=== PATIENT | male | born 1960 | race Caucasian/White ===

== ENCOUNTER → 2018-11-02 | Outpatient (CLI) | payer OTHER ==
[2016-04-13 11:44] VITALS: BP 119/82
[~2018-11-02] MED LIST: ALPR0.5T PO; ASPI325T8 PO; ATOR40TA PO; CARV3.12 PO; CLOP75TA57 PO; LEXAPRO10 MG PO; LISI2.5T PO; PANT20TA2 PO
--- NOTE | 2018-11-02 09:41 | CARD ---
MR#: [id number] Date of Study: 11/02/2018 Ordering Physician: ABRAHAM MASTERS, Referring Physician: ABRAHAM MASTERS, Tech: Brandie Zhang GAGAN APPROVED REPORT EXAM: Two-dimensional and M-mode echocardiogram with Doppler and color Doppler. Other Information Quality : GoodHR: 55bpm Rhythm : Bradycardia INDICATION CAD 2D DIMENSIONS RVDd3.1 (2.9-3.5cm)Left Atrium(2D)4.6 (1.6-4.0cm) IVSd0.9 (0.7-1.1cm)Aortic Root(2D)3.5 (2.0-3.7cm) LVDd7.0 (3.9-5.9cm)LVOT Diameter2.4 (1.8-2.4cm) PWd0.8 (0.7-1.1cm)LVDs6.3 (2.5-4.0cm) FS (%) 10.5 %SV56.3 ml LVEF(%)20.0 (>50%) M-Mode DIMENSIONS Left Atrium(MM)4.58 (2.5-4.0cm)Aortic Root3.75 (2.2-3.7cm) Aortic Valve AoV Peak Zan.119.7cm/sAoV VTI26.6cm AO Peak GR.5.7mmHgLVOT Peak Zan.88.0cm/s AO Mean GR.3mmHgAVA (VMAX)3.45cm2 Mitral Valve MV E Daxkueby02.6cm/sMV E Peak Gr.2mmHg MV DECEL [id number] A Sefsgtfv80.0cm/s MV E Mean Gr.1mmHgE/A Ratio1.0 Pulmonary Valve PV Peak Hfjejbdf201.4cm/s Tricuspid Valve TR P. Zifsghqe014on/sRAP NSERUIMI9zzTw TR Peak Gr.49exZzPTHL81xnDo Pulmonary Vein S1 Mdqbxwsp99.2cm/sD2 Tuoegrbb82.1cm/s PVa [id number] LEFT VENTRICLE The Left Ventricle is moderately dilated. There is normal left ventricular wall thickness. The ejecti on fraction is severely impaired. The Ejection Fraction is 15%. There is global hypokinesis of the le ft ventricle. Transmitral Doppler flow pattern is Grade II-pseudonormal filling dynamics. RIGHT VENTRICLE The right ventricle is normal size. There is normal right ventricular wall thickness. The right ventr icular systolic function is normal. ATRIA The left atrium is moderately dilated. The right atrium is mildly dilated. The interatrial septum is intact with no evidence for an atrial septal defect or patent foramen ovale as noted on 2-D or Dopple r imaging. AORTIC VALVE The aortic valve is mildly calcified. The aortic valve is trileaflet. Doppler and Color Flow revealed trace aortic regurgitation. There is no significant aortic valvular stenosis. There is no aortic corey vular vegetation. MITRAL VALVE The mitral valve is normal in structure and function. There is no evidence of mitral valve prolapse. There is no mitral valve stenosis. Doppler and Color-flow revealed moderate mitral regurgitation. TRICUSPID VALVE The tricuspid valve is normal in structure and function. Doppler and Color Flow revealed trace tricus pid regurgitation. The PA pressure was estimated at 23 mmHg. There is no tricuspid valve prolapse or vegetation. There is no tricuspid valve stenosis. PULMONIC VALVE Doppler and Color Flow revealed no pulmonic valvular regurgitation. There is no pulmonic valvular neo nosis. GREAT VESSELS The aortic root is normal in size. The ascending aorta is Mildly dilated at 3.8cm. The IVC is normal in size and collapses >50% with inspiration. PERICARDIAL EFFUSION There is no evidence of significant pericardial effusion. Critical Notification Critical Value: No <Conclusion> The ejection fraction is severely impaired. The Ejection Fraction is 15%. The Left Ventricle is moderately dilated. There is global hypokinesis of the left ventricle. Doppler and Color-flow revealed moderate mitral regurgitation. The ascending aorta is Mildly dilated at 3.8cm. Signed by : Abraham Masters, Electronically Approved : 11/02/2018 09:41:03
== END | disposition home or self-care (01) ==
LOC: ECHO 08:08
PROVIDERS: ATTEND Internal Medicine Cardiovascular Disease
DX: I08.0 Rheumatic disorders of both mitral and aortic valves (principal); I25.10 Atherosclerotic heart disease of native coronary artery without angina pectoris
CPT/HCPCS: 93306

== ENCOUNTER 2019-02-15 10:53 | Inpatient (IN) | payer OTHER ==
[~2019-02-15] VITALS: Ht 177.8 cm; Wt 103.6 kg
[2019-02-15] MEDS ORDERED: FAMOTIDINE 20 MG/2 ML VIAL IVP ONE (11:45)
[2019-02-15] MEDS ORDERED: ONDANSETRON PF 4 MG/2 ML VIAL. IV ONE (11:45)
[2019-02-15] MEDS ORDERED: DICYCLOMINE HCL 10 MG CAPSULE PO ONE (11:45)
[2019-02-15] MEDS ORDERED: MORPHINE SULFATE 4 MG/ML VIAL. IV/SQ PRN (11:45)
[2019-02-15 11:54] LABS: BASO # 0.1 x10^3/uL (0.0-0.2); BASO % 1 % (0-3); EOS # 0.1 x10^3/uL (0.0-0.7); EOS % 1 % (0-3); HEMATOCRIT 61.1 % (39.0-53.0); HEMOGLOBIN 20.9 g/dL (13.0-17.5); LYMPH # 3.1 x10^3/uL (1.0-4.8); LYMPH % 19 % (24-48); MEAN CORPUSCULAR HEMOGLOBIN 31 pg (25-35); MEAN CORPUSCULAR HGB CONC 34 g/dL (31-37); MEAN CORPUSCULAR VOLUME 92 fL (79-100); MONO # 1.1 x10^3/uL (0.0-1.1); MONO % 7 % (0-9); NEUT % 73 % (31-73); PLATELET COUNT 261 x10^3/uL (140-400); RED BLOOD COUNT 6.67 x10^6/uL (4.30-5.70); RED CELL DISTRIBUTION WIDTH 13.6 % (11.5-14.5); WHITE BLOOD COUNT 16.4 x10^3/uL (4.0-11.0)
[2019-02-15 11:57] LABS: BILIRUBIN,URINE SMALL (NEG); CLARITY,URINE CLEAR; COLOR,URINE AMBER; NITRITE,URINE NEGATIVE (NEG); PROTEIN,URINE NEGATIVE (NEG-TRACE)
[2019-02-15 12:06] LABS: SQUAMOUS EPITHELIAL CELL,UR FEW /LPF
[2019-02-15 12:07] LABS: BACTERIA,URINE FEW /HPF (0-FEW)
[2019-02-15 12:16] LABS: CALCIUM 10.9 mg/dL (8.5-10.1); CREATININE 1.1 mg/dL (0.7-1.3); GFR 68.5; POTASSIUM 4.6 mmol/L (3.5-5.1)
[2019-02-15 12:21] LABS: ALBUMIN 4.4 g/dL (3.4-5.0); TOTAL PROTEIN 8.2 g/dL (6.4-8.2)
[2019-02-15 12:22] LABS: ALBUMIN/GLOBULIN RATIO 1.2 (1.0-1.7); MAGNESIUM 1.9 mg/dL (1.8-2.4); TOTAL BILIRUBIN 1.3 mg/dL (0.2-1.0)
[2019-02-15 12:31] LABS: BARBITURATES NEG (NEG); BENZODIAZEPINES POS (NEG); CANNABINOIDS POS (NEG); COCAINE NEG (NEG); METHADONE NEG (NEG); OPIATES NEG (NEG); PHENCYCLIDINE NEG (NEG)
[2019-02-15 12:33] LABS: AMPHETAMINE/METHAMPHETAMINE NEG (NEG)
[2019-02-15] MEDS ORDERED: IOHEXOL 300 MG/ML 100ML VIAL. IV ONE (13:00)
--- NOTE | 2019-02-15 13:02 | EKG ---
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
[2019-02-15] MEDS ORDERED: CONTRAST GIVEN. MC PRN (13:15)
--- NOTE | 2019-02-15 14:11 | RAD ---
Examination: CT ABD PELV W/ IV CONTRST ONLY History: Abdomen pain Comparison/Correlation: None Findings: Axial images of the abdomen and pelvis were obtained following IV contrast. Sagittal and coronal reformatted images were provided. Sternal wires are present. Visualized lung bases are clear. Liver, spleen, and pancreas are unremarkable. Gallbladder fossa is unremarkable. Adrenal glands are unremarkable. Right kidney is normal. Left renal superior pole medially, there is a heterogeneously enhancing mass measuring 6.1 cm anteroposterior by 5.4 cm transverse by 7.3 cm longitudinal. Very small to characterize lesion lateral to this structure on axial image 24 probably represents a cyst. Renal veins are patent. Small umbilical hernia contains omental fat. No enlarged abdominal or pelvic lymph nodes. No ascites or pelvic free fluid. Fusiform infrarenal abdominal aortic aneurysm with thrombus is present measuring up to 4.3 cm transverse by 4.2 cm anteroposterior by 7.3 cm longitudinal. Atherosclerotic calcific involvement of the right common iliac artery noted. There is no bowel obstruction. No extraluminal gas. Appendix is normal. Urinary bladder is unremarkable. Bilateral L5 pars interarticularis fractures are present. Alignment is unremarkable. Impression: Left renal superior pole heterogeneous mass which is of significant concern for renal cell carcinoma or other renal malignancy. Infrarenal fusiform abdominal aortic aneurysm. Bilateral L5 pars interarticularis fractures are chronic in appearance without malalignment. PQRS Compliance Statement: One or more of the following individualized dose reduction techniques were utilized for this examination: 1. Automated exposure control 2. Adjustment of the mA and/or kV according to patient size 3. Use of iterative reconstruction technique Electronically signed by: Milton Andrade MD (02/15/2019 2:08 PM) [facility]
[2019-02-15] MEDS ORDERED: ALPRAZolam 0.5 MG TABLET PO ONE (17:45)
[2019-02-15] MEDS ORDERED: cloNIDine HCL 0.1 MG TABLET PO ONE (17:45)
--- NOTE | 2019-02-15 18:08 | PHYS DOC ---
Past Medical History Past Medical History: Anxiety, CAD, High Cholesterol, Heart Disease, Hypertension Past Surgical History: Other Alcohol Use: None Drug Use: Benzodiazepine Adult General Chief Complaint Chief Complaint: ABDOMINAL PAIN HPI HPI Patient is a 58 year old male with history of CAD, hypertension, anxiety, who presents to the ED today complaining of 10 out of 10 generalized abdominal pain with nausea vomiting and diarrhea intermittently for 2 weeks. Patient denies any exacerbating or relieving factors. He states he is supposed to be off his benzodiazepines because his doctor is weaning him but he states he has had episodes of anxiety and took the medication today with no relief to his symptoms. Denies any suicidal or homicidal ideations. Review of Systems Review of Systems Constitutional: Denies fever or chills [] Eyes: Denies change in visual acuity, redness, or eye pain [] HENT: Denies nasal congestion or sore throat [] Respiratory: Denies cough or shortness of breath [] Cardiovascular: No additional information not addressed in HPI [] GI: Reports abdominal pain, nausea vomiting and diarrhea : Denies dysuria or hematuria [] Musculoskeletal: Denies back pain or joint pain [] Integument: Denies rash or skin lesions [] Neurologic: Denies headache, focal weakness or sensory changes [] Endocrine: Denies polyuria or polydipsia [] All other systems were reviewed and found to be within normal limits, except as documented in this note. Current Medications Current Medications Current Medications Medications (Trade) Dose Ordered Sig/Demian Start Time Stop Time Status Last Admin Dose Admin Dicyclomine HCl (Bentyl) 20 mg 1X ONCE 02/15/19 11:45 02/15/19 11:46 DC Famotidine (Pepcid Vial) 20 mg 1X ONCE 02/15/19 11:45 02/15/19 11:46 DC 02/15/19 12:05 20 MG Info (CONTRAST GIVEN -- Rx MONITORING) 1 each PRN DAILY PRN 02/15/19 13:15 02/17/19 13:14 Iohexol (Omnipaque 300 Mg/ml) 75 ml 1X ONCE 02/15/19 13:00 02/15/19 13:06 DC 02/15/19 13:11 75 ML Morphine Sulfate (Morphine Sulfate) 4 mg PRN Q15MIN PRN 02/15/19 11:45 02/16/19 11:44 02/15/19 12:04 4 MG Ondansetron HCl (Zofran) 4 mg 1X ONCE 02/15/19 11:45 02/15/19 11:46 DC 02/15/19 12:05 4 MG Allergies Allergies Allergies Coded Allergies Type Severity Reaction Last Updated Verified Penicillins Allergy Intermediate Rash 02/18/15 Yes Physical Exam Physical Exam Constitutional: Well developed, well nourished, no acute distress, non-toxic appearance. [] HENT: Normocephalic, atraumatic, bilateral external ears normal, oropharynx moist, no oral exudates, nose normal. [] Eyes: PERRLA, EOMI, conjunctiva normal, no discharge. [] Neck: Normal range of motion, no tenderness, supple, no stridor. [] Cardiovascular: Old healed surgical incision on the chest. Heart rate regular rhythm, no murmur [] Lungs & Thorax: Bilateral breath sounds clear to auscultation [] Abdomen: Bowel sounds normal, soft, no tenderness, no masses, no pulsatile masses. [] Skin: Warm, dry, no erythema, no rash. [] Back: No tenderness, no CVA tenderness. [] Extremities: No tenderness, no cyanosis, no clubbing, ROM intact, no edema. [] Neurologic: Alert and oriented X 3, normal motor function, normal sensory function, no focal deficits noted. [] Psychologic: Flat affect, depressed mood, tearful at times Current Patient Data Vital Signs Vital Signs Date Time Temp Pulse Resp B/P (MAP) Pulse Ox O2 Delivery O2 Flow Rate FiO2 02/15/19 12:53 52 196/124 (148) 99 02/15/19 12:04 16 02/15/19 11:35 Room Air 02/15/19 10:53 98.6 98.6 Lab Values Laboratory Tests Test 02/15/19 11:35 02/15/19 11:40 White Blood Count 16.4 x10^3/uL (4.0-11.0) H Red Blood Count 6.67 x10^6/uL (4.30-5.70) H Hemoglobin 20.9 g/dL (13.0-17.5) H Hematocrit 61.1 % (39.0-53.0) H Mean Corpuscular Volume 92 fL (79-100) Mean Corpuscular Hemoglobin 31 pg (25-35) Mean Corpuscular Hemoglobin Concent 34 g/dL (31-37) Red Cell Distribution Width 13.6 % (11.5-14.5) Platelet Count 261 x10^3/uL (140-400) Neutrophils (%) (Auto) 73 % (31-73) Lymphocytes (%) (Auto) 19 % (24-48) L Monocytes (%) (Auto) 7 % (0-9) Eosinophils (%) (Auto) 1 % (0-3) Basophils (%) (Auto) 1 % (0-3) Neutrophils # (Auto) 12.0 x10^3/uL (1.8-7.7) H Lymphocytes # (Auto) 3.1 x10^3/uL (1.0-4.8) Monocytes # (Auto) 1.1 x10^3/uL (0.0-1.1) Eosinophils # (Auto) 0.1 x10^3/uL (0.0-0.7) Basophils # (Auto) 0.1 x10^3/uL (0.0-0.2) Sodium Level 140 mmol/L (136-145) Potassium Level 4.6 mmol/L (3.5-5.1) Chloride Level 102 mmol/L (98-107) Carbon Dioxide Level 26 mmol/L (21-32) Anion Gap 12 (6-14) Blood Urea Nitrogen 16 mg/dL (8-26) Creatinine 1.1 mg/dL (0.7-1.3) Estimated GFR (Cockcroft-Gault) 68.5 BUN/Creatinine Ratio 15 (6-20) Glucose Level 130 mg/dL (70-99) H Calcium Level 10.9 mg/dL (8.5-10.1) H Magnesium Level 1.9 mg/dL (1.8-2.4) Total Bilirubin 1.3 mg/dL (0.2-1.0) H Aspartate Amino Transferase (AST) 20 U/L (15-37) Alanine Aminotransferase (ALT) 24 U/L (16-63) Alkaline Phosphatase 76 U/L (46-116) Creatine Kinase 108 U/L (39-308) Creatine Kinase MB (Mass) 2.4 ng/mL (0.0-3.6) Creatine Kinase MB Relative Index 2.2 % (0-4) Troponin I Quantitative < 0.017 ng/mL (0.000-0.055) JR-[id number]-[id number]-Type Natriuretic Peptide 457 pg/mL (0-124) H Total Protein 8.2 g/dL (6.4-8.2) Albumin 4.4 g/dL (3.4-5.0) Albumin/Globulin Ratio 1.2 (1.0-1.7) Lipase 180 U/L (73-393) Ethyl Alcohol Level < 10 mg/dL (0-10) Urine Collection Type Unknown Urine Color [place] Urine Clarity Clear Urine pH 6.0 Urine Specific [place] 1.025 Urine Protein Negative mg/dL (NEG-TRACE) Urine Glucose (UA) Negative mg/dL (NEG) Urine Ketones (Stick) 40 mg/dL (NEG) Urine Blood Small (NEG) Urine Nitrite Negative (NEG) Urine Bilirubin Small (NEG) Urine Urobilinogen Dipstick 1.0 mg/dL (0.2 mg/dL) Urine Leukocyte Esterase Trace (NEG) Urine RBC 3-5 /HPF (0-2) Urine WBC 1-4 /HPF (0-4) Urine Squamous Epithelial Cells Few /LPF Urine Bacteria Few /HPF (0-FEW) Urine Mucus Mod /LPF Urine Opiates Screen Neg (NEG) Urine Methadone Screen Neg (NEG) Urine Barbiturates Neg (NEG) Urine Phencyclidine Screen Neg (NEG) Urine Amphetamine/Methamphetamine Neg (NEG) Urine Benzodiazepines Screen Pos (NEG) Urine Cocaine Screen Neg (NEG) Urine Cannabinoids Screen Pos (NEG) Urine Ethyl Alcohol Neg (NEG) Laboratory Tests 02/15/19 11:35 Laboratory Tests 02/15/19 11:35 EKG EKG [] Radiology/Procedures Radiology/Procedures []PROCEDURE: CT ABD PELV W/ IV CONTRST ONLY Examination: CT ABD PELV W/ IV CONTRST ONLY History: Abdomen pain Comparison/Correlation: None Findings: Axial images of the abdomen and pelvis were obtained following IV contrast. Sagittal and coronal reformatted images were provided. Sternal wires are present. Visualized lung bases are clear. Liver, spleen, and pancreas are unremarkable. Gallbladder fossa is unremarkable. Adrenal glands are unremarkable. Right kidney is normal. Left renal superior pole medially, there is a heterogeneously enhancing mass measuring 6.1 cm anteroposterior by 5.4 cm transverse by 7.3 cm longitudinal. Very small to characterize lesion lateral to this structure on axial image 24 probably represents a cyst. Renal veins are patent. Small umbilical hernia contains omental fat. No enlarged abdominal or pelvic lymph nodes. No ascites or pelvic free fluid. Fusiform infrarenal abdominal aortic aneurysm with thrombus is present measuring up to 4.3 cm transverse by 4.2 cm anteroposterior by 7.3 cm longitudinal. Atherosclerotic calcific involvement of the right common iliac artery noted. There is no bowel obstruction. No extraluminal gas. Appendix is normal. Urinary bladder is unremarkable. Bilateral L5 pars interarticularis fractures are present. Alignment is unremarkable. Impression: Left renal superior pole heterogeneous mass which is of significant concern for renal cell carcinoma or other renal malignancy. Infrarenal fusiform abdominal aortic aneurysm. Bilateral L5 pars interarticularis fractures are chronic in appearance without malalignment. PQRS Compliance Statement: One or more of the following individualized dose reduction techniques were utilized for this examination: 1. Automated exposure control 2. Adjustment of the mA and/or kV according to patient size 3. Use of iterative reconstruction technique Electronically signed by: Milton Franco MD (02/15/2019 2:08 PM) [facility] DICTATED and SIGNED BY: MILTON FRANCO MD DATE: 02/15/19 2656 Course & Med Decision Making Course & Med Decision Making Pertinent Labs and Imaging studies reviewed. (See chart for details) This is a 58-year-old male patient presenting to the ED today complaining of generalized abdominal pain with nausea vomiting and diarrhea for 2 weeks. CBC with a WBC of 16.4 and a left shift. CMP would not acute findings. Urine analysis is noted for trace amount of leukocytes. CT of the abdomen and pelvic is noted for left renal carcinoma. Information was given to patient. He requested admission. Spoke with Dr. Trimble prior to poor accepted patient for admission and requested routine consult for infectious disease as well as GI. He also requested Levaquin IV. Dragon Disclaimer Dragon Disclaimer This electronic medical record was generated, in whole or in part, using a voice recognition dictation system. Departure Departure Impression: Primary Impression: Urinary tract infection Additional Impressions: Abdominal pain Vomiting and diarrhea Disposition: ADMITTED INPATIENT Condition: STABLE Referrals: BETO TRIMBLE MD (PCP) Problem Qualifiers Primary Impression: Urinary tract infection Urinary tract infection type: site unspecified Hematuria presence: without hematuria Qualified Codes: N39.0 - Urinary tract infection, site not specified Additional Impressions: Abdominal pain Abdominal location: unspecified location Qualified Codes: R10.9 - Unspecified abdominal pain KRISSY ALCARAZ APRN Feb 15, 2019 18:08
[2019-02-15] MEDS ORDERED: IV NORMAL SALINE 1000ML BAG 1,000 ML IV ONE (18:15)
[2019-02-15] MEDS ORDERED: ACETAMINOPHEN 325 MG TABLET. PO PRN (18:15)
[2019-02-15] MEDS ORDERED: MORPHINE SULFATE 4 MG/ML VIAL. IV PRN (18:15)
[2019-02-15] MEDS ORDERED: ONDANSETRON PF 4 MG/2 ML VIAL. IV PRN (18:15)
[2019-02-15] MEDS ORDERED: ONDANSETRON ODT 4 MG TAB.RAPDIS. PO PRN (18:30)
[2019-02-15] MEDS ORDERED: cloNIDine HCL 0.1 MG TABLET PO PRN (18:30)
[2019-02-15] MEDS ORDERED: hydrALAZINE 20 MG/ML VIAL. IVP PRN (18:30)
--- NOTE | 2019-02-15 18:45 | PDOC ---
Provider Note Provider Note Patient seen. History and Physical dictated. See dictation#[id number] BETO DALEY MD Feb 15, 2019 18:45
[2019-02-15 19:00] VITALS: BP 142/90
[2019-02-15] MEDS: ENOXAPARIN 40 MG/0.4 ML SYRINGE. SQ SCH (20:00)
[2019-02-15] MEDS: IV DEXTROSE 5 %-0.45 % NACL 1,000 ML IV SCH (20:15)
--- NOTE | 2019-02-15 20:16 | HP ---
ADMIT DATE: 02/15/2019 HISTORY OF PRESENT ILLNESS: This 58-year-old male states that for the last 2 weeks he has not been feeling well. He started having back pain that has been getting worse. He has a history of chronic low back pain. Then for the last 3 days, he has had nausea and vomiting. Denies abdominal pain. He had no bowel movement. He states that he could not eat and he has not taken his medications. He also started becoming dyspneic this morning. He also has had cough, congestion, sneezing, and nasal drainage. Mucus is white. He denies any fever or chills. Because of the severe back pain, abdominal pain, nausea, vomiting, and dyspnea, he came to the Emergency Room. In the Emergency Room, he has had very high blood pressures. Initial blood pressure was 197/95 and 196/124 and now it is 176/98. He was given clonidine in the Emergency Room. Blood test showed that he is known to have polycythemia vera and has previously sometimes given blood for therapeutic phlebotomy. His WBC count is 16.4, hemoglobin is 20.9, polys 73, and platelet count is 261,000. Sodium 140, potassium 4.6, BUN 16, creatinine 1.1, glucose 130, calcium 10.9, magnesium 1.9, and total bilirubin 1.3. BNP was 457. Troponin was normal. Urine drug screen showed marijuana and benzodiazepines in his urine. The patient has a history of anxiety and has previously been on Xanax, but we had declined to give him Xanax for some time. His urinalysis showed small bilirubin, nitrite negative, 3-5 rbc's, 1-4 wbc's, and few bacteria. CT scan of abdomen and pelvis showed left renal mass which could be possible renal cell carcinoma. He also has a 4.3 cm infrarenal abdominal aortic aneurysm with thrombus. He has had bilateral L5 pars interarticularis fractures that are chronic. Because of the hypertensive crisis, abdominal pain, vomiting, worsening of the polycythemia vera, and dyspnea, the patient was admitted for further evaluation and management. REVIEW OF SYSTEMS: At present time, the patient continues to have some low back pain. He does not have any nausea or vomiting at this time. He is able to talk to me without getting short of breath, but he is very anxious. He denies any hematuria or dysuria. Other systems reviewed and are negative. He denies any chest pains, palpitations, or dizziness. PAST MEDICAL HISTORY: The patient has a history of polycythemia vera. He was supposed to have a sleep study that was ordered by Dr. Hall few weeks ago. He has a history of depression and anxiety. He had a seizure disorder in 1987. He had brain injury in 1992. He also has had low back pain from lumbar fractures, transverse process fractures. He has a history of coronary artery disease, hypertension, anxiety, and depression. He also has allergic rhinitis. PAST SURGICAL HISTORY: The patient has had CABG x 5 in 2007. I do believe he had a bone marrow biopsy. He has a history of an accident with transverse process fractures of the lumbar spine and a history of marijuana abuse and using benzodiazepines for anxiety. ALLERGIES: THE PATIENT IS ALLERGIC TO PENICILLIN. MEDICATIONS: Reviewed. The patient is supposed to be on Plavix 75 mg daily which I do not see on his list and he was on aspirin 325 mg half tablet daily. He is on Coreg 3.125 mg and lisinopril 2.5 mg for the blood pressure, Lexapro 10 mg daily, and Xanax 0.5 mg twice a day p.r.n. for anxiety. FAMILY HISTORY: Brother had myocardial infarction. Father had coronary artery disease with CABG and mother also has coronary artery disease. PHYSICAL EXAMINATION: GENERAL: The patient is a middle-aged male who is alert, oriented, very anxious, and not in any acute distress. VITAL SIGNS: Temperature 98.6, pulse 67 per minute, respirations 16 per minute, and blood pressure on admission was 205/114 mmHg. Last blood pressure is 176/98 mmHg. EYES: Pupils reacting to light. Conjunctivae pink. Sclerae white. HENT: Unremarkable except for mild congestion of throat. NECK: Supple. JVP normal. No thyromegaly. Trachea midline. SKIN: Warm and dry. Face is plethoric. There is no cyanosis. LUNGS: Decreased breath sounds at bases. No wheezing. No rales. CARDIOVASCULAR: S1, S2 regular. Bradycardia present. ABDOMEN: Soft and nontender. No guarding. No rigidity. Bowel sounds present. EXTREMITIES: No edema. No cyanosis. No calf tenderness. CENTRAL NERVOUS SYSTEM: Alert and oriented, very anxious, and moves all extremities. LABORATORY FINDINGS: As noted earlier. IMAGING: CT scan of abdomen and pelvis as noted earlier. IMPRESSION: 1. Acute hypertensive crisis. 2. Abdominal pain. 3. Vomiting. 4. Left renal mass, possibly renal cell carcinoma. 5. Polycythemia vera, much worse. 6. Dyspnea. 7. Aortic aneurysm, 4.3 cm in size with thrombus. 8. Coronary artery disease. 9. History of coronary artery bypass graft. 10. Depression. 11. Anxiety. 12. Marijuana abuse. 13. Dependence on Xanax. 14. Seizure disorder. 15. History of brain injury. PLAN: We will consult Dr. Hall for evaluation of his polycythemia. He may be also dehydrated. I will give him some IV fluids. He was supposed to get a sleep study ordered by Dr. Hall. Leukocytosis may be due to polycythemia, but because of his dyspnea, cough, and sinus congestion, I will also consult Dr. Marck Montague for Infectious Disease evaluation and management. He also has had significant nausea, vomiting, and abdominal pain. Consult Dr. Viramontes for Urology evaluation and management and Dr. Whitehead for Vascular Surgery evaluation and management because of the thrombus in the aneurysm. We will give him IV fluids. I will order x-rays of the chest and lumbar spine. I will start him on Lovenox 40 mg subcutaneous daily. Continue other medications. I will put him back on aspirin. I will hold Plavix for now in case if any procedure is planned. For details, please refer to the orders. I will also give him clonidine 0.1 mg q. 6 hours p.r.n. for systolic blood pressure more than 160. For details, please refer to the orders. BETO DALEY MD DR: CATHERINE/jarrett JOB#: [id number] / [id number]
[2019-02-15] MEDS: ATORVASTATIN CALCIUM 40 MG TABLET. PO SCH (21:01)
[2019-02-15 23:00] VITALS: BP 124/69
[2019-02-16 03:00] VITALS: BP 121/70
[2019-02-16 04:21] LABS: BASO # 0.2 x10^3/uL (0.0-0.2); BASO % 1 % (0-3); EOS # 0.2 x10^3/uL (0.0-0.7); EOS % 1 % (0-3); HEMATOCRIT 54.8 % (39.0-53.0); HEMOGLOBIN 18.8 g/dL (13.0-17.5); LYMPH # 4.7 x10^3/uL (1.0-4.8); LYMPH % 27 % (24-48); MEAN CORPUSCULAR HEMOGLOBIN 32 pg (25-35); MEAN CORPUSCULAR HGB CONC 34 g/dL (31-37); MEAN CORPUSCULAR VOLUME 92 fL (79-100); MONO # 1.5 x10^3/uL (0.0-1.1); MONO % 9 % (0-9); NEUT # 11.1 x10^3/uL (1.8-7.7); NEUT % 63 % (31-73); PLATELET COUNT 222 x10^3/uL (140-400); RED BLOOD COUNT 5.96 x10^6/uL (4.30-5.70); RED CELL DISTRIBUTION WIDTH 13.6 % (11.5-14.5); WHITE BLOOD COUNT 17.7 x10^3/uL (4.0-11.0)
[2019-02-16 04:36] LABS: ALBUMIN 3.6 g/dL (3.4-5.0); GFR 76.5; POTASSIUM 3.8 mmol/L (3.5-5.1); TOTAL BILIRUBIN 1.3 mg/dL (0.2-1.0); TOTAL PROTEIN 7.3 g/dL (6.4-8.2)
[2019-02-16 07:00] VITALS: BP 122/77
[2019-02-16] MEDS ORDERED: ASPIRIN 325 MG TABLET PO SCH (09:00)
[2019-02-16] MEDS ORDERED: CARVEDILOL 3.125 MG TABLET. PO SCH (09:00)
[2019-02-16] MEDS ORDERED: FLU VAX QS 2019-20 (36MOS+)/PF 0.5 ML SYRINGE. VAX IM ONE (09:00)
--- NOTE | 2019-02-16 09:10 | RAD ---
CHEST PA LATERAL History: Dyspnea Comparison: 08/17/2014 and 2 view chest x-ray exam. Findings: Sternal wires and mediastinal clips are present. The cardiomediastinal silhouette is normal. Pulmonary vasculature is normal. The lungs are clear. No pleural effusion or pneumothorax is seen. There is no acute bone abnormality. IMPRESSION: No acute cardiopulmonary process. Electronically signed by: Milton Andrade MD (02/16/2019 9:07 AM) [facility]
--- NOTE | 2019-02-16 09:15 | RAD ---
Examination: LUMBAR SPINE 2-3V History: Low back pain Comparison/Correlation: 02/14/2019 CT abdomen and pelvis with contrast Findings: Total 3 images of the lumbar spine were obtained including frontal view, lateral view, and cone-down lateral view at the L5-S1 level. Alignment is normal. Alignment is normal. Vertebral body heights are adequate. No new fracture or bony destruction. L5 pars and articularis fracture involvement noted. Degenerative changes involving the lower lumbar spine facet joints noted. Infrarenal abdominal aorta aneurysm is noted. Impression: Alignment is unremarkable. Infrarenal abdominal aortic aneurysm. L5 pars interarticularis fracture involvement. Electronically signed by: Milton Andrade MD (02/16/2019 9:12 AM) [facility]
--- NOTE | 2019-02-16 09:50 | PDOC ---
IM PROGRESS NOTES- Subjective Subjective Abdominal pain,nausea,dyspnea improving. Objective Vitals/I&O Vital Signs Date Time Temp Pulse Resp B/P (MAP) Pulse Ox O2 Delivery O2 Flow Rate FiO2 02/16/19 07:00 97.8 56 16 122/77 (92) 98 Room Air 97.8 I & O 02/15/19 02/15/19 02/16/19 15:00 23:00 07:00 Intake Total 400 ml 200 ml Balance 400 ml 200 ml Physical Exam Physical Exam General appearance - alert,well appearing, and in no distress and oriented to person, place, and time Mental Status - alert, oriented to person, place, and time, anxious Head - normal Chest - clear to auscultation, no wheezes, rales or rhonchi, symmetric air entry Heart - S1 and S2 normal Abdomen - soft, nontender, nondistended, no masses or organomegaly Neurological - alert and oriented,anxious Musculoskeletal - no muscular tenderness noted Extremities - no pedal edema Skin - warm and dry Labs Laboratory Tests Test 02/15/19 11:35 02/15/19 11:40 02/16/19 03:50 White Blood Count 16.4 x10^3/uL (4.0-11.0) H 17.7 x10^3/uL (4.0-11.0) H Red Blood Count 6.67 x10^6/uL (4.30-5.70) H 5.96 x10^6/uL (4.30-5.70) H Hemoglobin 20.9 g/dL (13.0-17.5) H 18.8 g/dL (13.0-17.5) H Hematocrit 61.1 % (39.0-53.0) H 54.8 % (39.0-53.0) H Mean Corpuscular Volume 92 fL (79-100) 92 fL (79-100) Mean Corpuscular Hemoglobin 31 pg (25-35) 32 pg (25-35) Mean Corpuscular Hemoglobin Concent 34 g/dL (31-37) 34 g/dL (31-37) Red Cell Distribution Width 13.6 % (11.5-14.5) 13.6 % (11.5-14.5) Platelet Count 261 x10^3/uL (140-400) 222 x10^3/uL (140-400) Neutrophils (%) (Auto) 73 % (31-73) 63 % (31-73) Lymphocytes (%) (Auto) 19 % (24-48) L 27 % (24-48) Monocytes (%) (Auto) 7 % (0-9) 9 % (0-9) Eosinophils (%) (Auto) 1 % (0-3) 1 % (0-3) Basophils (%) (Auto) 1 % (0-3) 1 % (0-3) Neutrophils # (Auto) 12.0 x10^3/uL (1.8-7.7) H 11.1 x10^3/uL (1.8-7.7) H Lymphocytes # (Auto) 3.1 x10^3/uL (1.0-4.8) 4.7 x10^3/uL (1.0-4.8) Monocytes # (Auto) 1.1 x10^3/uL (0.0-1.1) 1.5 x10^3/uL (0.0-1.1) H Eosinophils # (Auto) 0.1 x10^3/uL (0.0-0.7) 0.2 x10^3/uL (0.0-0.7) Basophils # (Auto) 0.1 x10^3/uL (0.0-0.2) 0.2 x10^3/uL (0.0-0.2) Sodium Level 140 mmol/L (136-145) 141 mmol/L (136-145) Potassium Level 4.6 mmol/L (3.5-5.1) 3.8 mmol/L (3.5-5.1) Chloride Level 102 mmol/L (98-107) 105 mmol/L (98-107) Carbon Dioxide Level 26 mmol/L (21-32) 27 mmol/L (21-32) Anion Gap 12 (6-14) 9 (6-14) Blood Urea Nitrogen 16 mg/dL (8-26) 17 mg/dL (8-26) Creatinine 1.1 mg/dL (0.7-1.3) 1.0 mg/dL (0.7-1.3) Estimated GFR (Cockcroft-Gault) 68.5 76.5 BUN/Creatinine Ratio 15 (6-20) 17 (6-20) Glucose Level 130 mg/dL (70-99) H 116 mg/dL (70-99) H Calcium Level 10.9 mg/dL (8.5-10.1) H 9.0 mg/dL (8.5-10.1) Magnesium Level 1.9 mg/dL (1.8-2.4) Total Bilirubin 1.3 mg/dL (0.2-1.0) H 1.3 mg/dL (0.2-1.0) H Aspartate Amino Transferase (AST) 20 U/L (15-37) 15 U/L (15-37) Alanine Aminotransferase (ALT) 24 U/L (16-63) 19 U/L (16-63) Alkaline Phosphatase 76 U/L (46-116) 62 U/L (46-116) Creatine Kinase 108 U/L (39-308) Creatine Kinase MB (Mass) 2.4 ng/mL (0.0-3.6) Creatine Kinase MB Relative Index 2.2 % (0-4) Troponin I Quantitative < 0.017 ng/mL (0.000-0.055) FE-Aez-X-Type Natriuretic Peptide 457 pg/mL (0-124) H Total Protein 8.2 g/dL (6.4-8.2) 7.3 g/dL (6.4-8.2) Albumin 4.4 g/dL (3.4-5.0) 3.6 g/dL (3.4-5.0) Albumin/Globulin Ratio 1.2 (1.0-1.7) 1.0 (1.0-1.7) Lipase 180 U/L (73-393) Ethyl Alcohol Level < 10 mg/dL (0-10) Urine Collection Type Unknown Urine Color [place] Urine Clarity Clear Urine pH 6.0 Urine Specific Gray 1.025 Urine Protein Negative mg/dL (NEG-TRACE) Urine Glucose (UA) Negative mg/dL (NEG) Urine Ketones (Stick) 40 mg/dL (NEG) Urine Blood Small (NEG) Urine Nitrite Negative (NEG) Urine Bilirubin Small (NEG) Urine Urobilinogen Dipstick 1.0 mg/dL (0.2 mg/dL) Urine Leukocyte Esterase Trace (NEG) Urine RBC 3-5 /HPF (0-2) Urine WBC 1-4 /HPF (0-4) Urine Squamous Epithelial Cells Few /LPF Urine Bacteria Few /HPF (0-FEW) Urine Mucus Mod /LPF Urine Opiates Screen Neg (NEG) Urine Methadone Screen Neg (NEG) Urine Barbiturates Neg (NEG) Urine Phencyclidine Screen Neg (NEG) Urine Amphetamine/Methamphetamine Neg (NEG) Urine Benzodiazepines Screen Pos (NEG) Urine Cocaine Screen Neg (NEG) Urine Cannabinoids Screen Pos (NEG) Urine Ethyl Alcohol Neg (NEG) Laboratory Tests 02/15/19 11:35 02/16/19 03:50 Laboratory Tests 02/15/19 11:35 02/16/19 03:50 Meds Current Medications Medications (Trade) Dose Ordered Sig/Demian Route PRN Reason Start Time Stop Time Status Last Admin Dose Admin Morphine Sulfate (Morphine Sulfate) 4 mg PRN Q15MIN PRN IV/SQ PAIN GREATER THAN 3/10 02/15/19 11:45 02/16/19 11:44 02/15/19 12:04 Ondansetron HCl (Zofran) 4 mg 1X ONCE IV 02/15/19 11:45 02/15/19 11:46 DC 02/15/19 12:05 Famotidine (Pepcid Vial) 20 mg 1X ONCE IVP 02/15/19 11:45 02/15/19 11:46 DC 02/15/19 12:05 Iohexol (Omnipaque 300 Mg/ml) 75 ml 1X ONCE IV 02/15/19 13:00 02/15/19 13:06 DC 02/15/19 13:11 Alprazolam (Xanax) 0.5 mg 1X ONCE PO 02/15/19 17:45 02/15/19 17:47 DC 02/15/19 17:51 Clonidine HCl (Catapres) 0.1 mg 1X ONCE PO 02/15/19 17:45 02/15/19 17:47 DC 02/15/19 17:54 Atorvastatin Calcium (Lipitor) 40 mg QHS PO 02/15/19 21:00 02/15/19 21:01 Enoxaparin Sodium (Lovenox 40mg Syringe) 40 mg Q24H SQ 02/15/19 18:00 02/15/19 20:00 Morphine Sulfate (Morphine Sulfate) 4 mg PRN Q2HR PRN IV PAIN 02/15/19 18:15 02/16/19 18:14 02/16/19 01:53 Dextrose/Sodium Chloride 1,000 ml @ 75 mls/hr [id number] IV 02/15/19 18:30 02/15/19 20:15 Assessment Assessment 1. Acute hypertensive crisis. 2. Abdominal pain. 3. Vomiting. 4. Left renal mass, possibly renal cell carcinoma. 5. Polycythemia vera, much worse. 6. Dyspnea. 7. Aortic aneurysm, 4.3 cm in size with thrombus. 8. Coronary artery disease. 9. History of coronary artery bypass graft. 10. Depression. 11. Anxiety. 12. Marijuana abuse. 13. Dependence on Xanax. 14. Seizure disorder. 15. History of brain injury. PLAN: We will consult Dr. Hall for evaluation of his polycythemia. He may be also dehydrated. I will give him some IV fluids. He was supposed to get a sleep study ordered by Dr. aHll. Leukocytosis may be due to polycythemia, but because of his dyspnea, cough, and sinus congestion, I will also consult Dr. Marck Montague for Infectious Disease evaluation and management. He also has had significant nausea, vomiting, and abdominal pain. Consult Dr. Viramontes for Urology evaluation and management and Dr. Whitehead for Vascular Surgery evaluation and management because of the thrombus in the aneurysm. We will give him IV fluids. I will order x-rays of the chest and lumbar spine. I will start him on Lovenox 40 mg subcutaneous daily. Continue other medications. I will put him back on aspirin. I will hold Plavix for now in case if any procedure is planned. For details, please refer to the orders. I will also give him clonidine 0.1 mg q. 6 hours p.r.n. for systolic blood pressure more than 160. For details, please refer to the orders. Polycythemia,Leukocytosis - improving. Hypertensive crisis improving. Chest x ray no acute changes. Anxiety/Panic attacks- continue Xanax .Not taking Lexapro.Advised to take regularly. ? Renal cell carcinoma Aortic aneurysm- 4.3 cm with clot. D/w patient and family. Plan Plan For more details regarding further plans, please refer to the orders. BETO DALEY MD Feb 16, 2019 09:50
--- NOTE | 2019-02-16 09:55 | PDOC2 ---
KING CHASE 02/16/19 0955: UROLOGY CONSULT Date of Consult Date of Consult DATE: 02/16/19 TIME: 09:42 Identification/Chief Complaint Chief Complaint left renal mass Source Source: Chart review, Patient History of Present Illness Reason for Visit: 58yo male with PMH of polycythemia vera, CAD, HTN, anxiety, depression who presented to ER for dyspnea and abdominal pain CT showed left renal mass concerning for malignancy that pt was previously unaware of Pt mother had kidney cancer that required removal of kidney Denies hematuria, unintentional weight loss, bone pain Past Medical History Cardiovascular: CAD, HTN CENTRAL NERVOUS SYSTEM: Seizure Heme/Onc: Other (Polycythemia vera) Psych: Anxiety, Depression Musculoskeletal: low back pain Renal/: Other (kidney mass) Past Surgical History Past Surgical History: CABG Family History Family History: Coronary Artery Disease, Other (Kidney cancer) Social History No ALCOHOL: none Drugs: Marijuana Current Medications Current Medications Current Medications Acetaminophen (Tylenol) 650 mg PRN Q4HRS PRN PO FEVER; Start 02/15/19 at 18:15; Stop 02/16/19 at 18:14 Acetaminophen/ Hydrocodone Bitart (Lortab 7.5/325) 1 tab PRN Q6HRS PRN PO PAIN; Start 02/15/19 at 18:30 Alprazolam (Xanax) 0.5 mg 1X ONCE PO Last administered on 02/15/19at 17:51; Start 02/15/19 at 17:45; Stop 02/15/19 at 17:47; Status DC Alprazolam (Xanax) 0.5 mg PRN Q8HRS PRN PO ANXIETY / AGITATION; Start 02/15/19 at 18:30 Aspirin (Miri Aspirin) 325 mg DAILY PO ; Start 02/16/19 at 09:00; Status Cancel Aspirin (Children'S Aspirin) 81 mg DAILYWBKFT PO ; Start 02/16/19 at 08:00 Atorvastatin Calcium (Lipitor) 40 mg QHS PO Last administered on 02/15/19at 21:01; Start 02/15/19 at 21:00 Carvedilol (Coreg) 3.125 mg DAILY PO ; Start 02/16/19 at 09:00 Citalopram Hydrobromide (CeleXA) 20 mg DAILY PO ; Start 02/16/19 at 09:00 Clonidine HCl (Catapres) 0.1 mg 1X ONCE PO Last administered on 02/15/19at 17:54; Start 02/15/19 at 17:45; Stop 02/15/19 at 17:47; Status DC Clonidine HCl (Catapres) 0.1 mg PRN Q6HRS PRN PO HYPERTENSION; Start 02/15/19 at 18:30 Dextrose/Sodium Chloride 1,000 ml @ 75 mls/hr [id number] IV Last administered on 02/15/19at 20:15; Start 02/15/19 at 18:30 Dicyclomine HCl (Bentyl) 20 mg 1X ONCE PO ; Start 02/15/19 at 11:45; Stop 02/15/19 at 11:46; Status DC Enoxaparin Sodium (Lovenox 40mg Syringe) 40 mg Q24H SQ Last administered on 02/15/19at 20:00; Start 02/15/19 at 18:00 Famotidine (Pepcid Vial) 20 mg 1X ONCE IVP Last administered on 02/15/19at 12:05; Start 02/15/19 at 11:45; Stop 02/15/19 at 11:46; Status DC Hydralazine HCl (Apresoline Inj) 10 mg PRN Q4HRS PRN IVP FOR SBP > 160; Start 02/15/19 at 18:30 Influenza Virus Vaccine Quadrival (Afluria Quad 2019-20 (3yr Up) Syringe) 0.5 ml ONCE ONCE VAX IM ; Start 02/16/19 at 09:00; Stop 02/16/19 at 09:01; Status DC Info (CONTRAST GIVEN -- Rx MONITORING) 1 each PRN DAILY PRN MC SEE COMMENTS; Start 02/15/19 at 13:15; Stop 02/17/19 at 13:14 Iohexol (Omnipaque 300 Mg/ml) 75 ml 1X ONCE IV Last administered on 02/15/19at 13:11; Start 02/15/19 at 13:00; Stop 02/15/19 at 13:06; Status DC Lisinopril (Prinivil) 2.5 mg DAILY PO ; Start 02/16/19 at 09:00 Morphine Sulfate (Morphine Sulfate) 4 mg PRN Q15MIN PRN IV/SQ PAIN GREATER THAN 3/10 Last administered on 02/15/19at 12:04; Start 02/15/19 at 11:45; Stop 02/16/19 at 11:44 Morphine Sulfate (Morphine Sulfate) 4 mg PRN Q2HR PRN IV PAIN Last administered on 02/16/19at 01:53; Start 02/15/19 at 18:15; Stop 02/16/19 at 18:14 Ondansetron HCl (Zofran Odt) 4 mg PRN Q6HRS PRN PO NAUSEA/VOMITING; Start 02/15/19 at 18:30 Ondansetron HCl (Zofran) 4 mg 1X ONCE IV Last administered on 02/15/19at 12:05; Start 02/15/19 at 11:45; Stop 02/15/19 at 11:46; Status DC Ondansetron HCl (Zofran) 4 mg PRN Q8HRS PRN IV NAUSEA/VOMITING; Start 02/15/19 at 18:15; Stop 02/16/19 at 18:14 Pantoprazole Sodium (Protonix) 40 mg DAILYAC PO ; Start 02/16/19 at 07:30 Sodium Chloride 1,000 ml @ 75 mls/hr 1X ONCE IV ; Start 02/15/19 at 18:15; Stop 02/16/19 at 07:34; Status DC Allergies Allergies: Coded Allergies: Penicillins (Verified Allergy, Intermediate, Rash, 02/18/15) ROS Review Of Systems: CONSTITUTIONAL: No fever or chills EYES: No recent changes SKIN: No rash or itching CARDIOVASCULAR: No chest pain, syncope, palpitations, or edema RESPIRATORY: + SOB or cough GASTROINTESTINAL: + nausea, vomiting or abdominal pain NEUROLOGICAL: No headaches or weakness ENDOCRINE: No cold or heat intolerance GENITOURINARY: No urgency or frequency of urination MUSCULOSKELETAL: +back pain or joint pain LYMPHATICS: No enlarged lymph nodes PSYCHIATRIC: + anxiety or depression Physical Exam Physical Exam: General: Pleasant, anxious, well groomed Eyes: conjunctiva anicteric, eyes full range of motion ENT: moist oral mucosa, normal dentition Neck: Trachea midline, no masses Respiratory: unlabored breathing, not using accessory muscles Cardiovascular: Regular rate and rhythm, no peripheral edema Abdomen: nontender, nondistended, no hepatosplenomegaly, no masses Skin: no rashes or skin lesions on visualized skin Psych: normal mood, anxious. Alert and oriented x 3. Vitals VITALS Vital Signs Date Time Temp Pulse Resp B/P (MAP) Pulse Ox O2 Delivery O2 Flow Rate FiO2 02/16/19 07:00 97.8 56 16 122/77 (92) 98 Room Air 97.8 Labs Labs Laboratory Tests Test 02/15/19 11:35 02/15/19 11:40 02/16/19 03:50 White Blood Count 16.4 x10^3/uL (4.0-11.0) 17.7 x10^3/uL (4.0-11.0) Red Blood Count 6.67 x10^6/uL (4.30-5.70) 5.96 x10^6/uL (4.30-5.70) Hemoglobin 20.9 g/dL (13.0-17.5) 18.8 g/dL (13.0-17.5) Hematocrit 61.1 % (39.0-53.0) 54.8 % (39.0-53.0) Mean Corpuscular Volume 92 fL (79-100) 92 fL (79-100) Mean Corpuscular Hemoglobin 31 pg (25-35) 32 pg (25-35) Mean Corpuscular Hemoglobin Concent 34 g/dL (31-37) 34 g/dL (31-37) Red Cell Distribution Width 13.6 % (11.5-14.5) 13.6 % (11.5-14.5) Platelet Count 261 x10^3/uL (140-400) 222 x10^3/uL (140-400) Neutrophils (%) (Auto) 73 % (31-73) 63 % (31-73) Lymphocytes (%) (Auto) 19 % (24-48) 27 % (24-48) Monocytes (%) (Auto) 7 % (0-9) 9 % (0-9) Eosinophils (%) (Auto) 1 % (0-3) 1 % (0-3) Basophils (%) (Auto) 1 % (0-3) 1 % (0-3) Neutrophils # (Auto) 12.0 x10^3/uL (1.8-7.7) 11.1 x10^3/uL (1.8-7.7) Lymphocytes # (Auto) 3.1 x10^3/uL (1.0-4.8) 4.7 x10^3/uL (1.0-4.8) Monocytes # (Auto) 1.1 x10^3/uL (0.0-1.1) 1.5 x10^3/uL (0.0-1.1) Eosinophils # (Auto) 0.1 x10^3/uL (0.0-0.7) 0.2 x10^3/uL (0.0-0.7) Basophils # (Auto) 0.1 x10^3/uL (0.0-0.2) 0.2 x10^3/uL (0.0-0.2) Sodium Level 140 mmol/L (136-145) 141 mmol/L (136-145) Potassium Level 4.6 mmol/L (3.5-5.1) 3.8 mmol/L (3.5-5.1) Chloride Level 102 mmol/L (98-107) 105 mmol/L (98-107) Carbon Dioxide Level 26 mmol/L (21-32) 27 mmol/L (21-32) Anion Gap 12 (6-14) 9 (6-14) Blood Urea Nitrogen 16 mg/dL (8-26) 17 mg/dL (8-26) Creatinine 1.1 mg/dL (0.7-1.3) 1.0 mg/dL (0.7-1.3) Estimated GFR (Cockcroft-Gault) 68.5 76.5 BUN/Creatinine Ratio 15 (6-20) 17 (6-20) Glucose Level 130 mg/dL (70-99) 116 mg/dL (70-99) Calcium Level 10.9 mg/dL (8.5-10.1) 9.0 mg/dL (8.5-10.1) Magnesium Level 1.9 mg/dL (1.8-2.4) Total Bilirubin 1.3 mg/dL (0.2-1.0) 1.3 mg/dL (0.2-1.0) Aspartate Amino Transf (AST/SGOT) 20 U/L (15-37) 15 U/L (15-37) Alanine Aminotransferase (ALT/SGPT) 24 U/L (16-63) 19 U/L (16-63) Alkaline Phosphatase 76 U/L (46-116) 62 U/L (46-116) Creatine Kinase 108 U/L (39-308) Creatine Kinase MB (Mass) 2.4 ng/mL (0.0-3.6) Creatine Kinase MB Relative Index 2.2 % (0-4) Troponin I Quantitative < 0.017 ng/mL (0.000-0.055) [id number]-Gft-[id number]-Type Natriuretic Peptide 457 pg/mL (0-124) Total Protein 8.2 g/dL (6.4-8.2) 7.3 g/dL (6.4-8.2) Albumin 4.4 g/dL (3.4-5.0) 3.6 g/dL (3.4-5.0) Albumin/Globulin Ratio 1.2 (1.0-1.7) 1.0 (1.0-1.7) Lipase 180 U/L (73-393) Ethyl Alcohol Level < 10 mg/dL (0-10) Urine Collection Type Unknown Urine Color [place] Urine Clarity Clear Urine pH 6.0 Urine Specific [place] 1.025 Urine Protein Negative mg/dL (NEG-TRACE) Urine Glucose (UA) Negative mg/dL (NEG) Urine Ketones (Stick) 40 mg/dL (NEG) Urine Blood Small (NEG) Urine Nitrite Negative (NEG) Urine Bilirubin Small (NEG) Urine Urobilinogen Dipstick 1.0 mg/dL (0.2 mg/dL) Urine Leukocyte Esterase Trace (NEG) Urine RBC 3-5 /HPF (0-2) Urine WBC 1-4 /HPF (0-4) Urine Squamous Epithelial Cells Few /LPF Urine Bacteria Few /HPF (0-FEW) Urine Mucus Mod /LPF Urine Opiates Screen Neg (NEG) Urine Methadone Screen Neg (NEG) Urine Barbiturates Neg (NEG) Urine Phencyclidine Screen Neg (NEG) Urine Amphetamine/Methamphetamine Neg (NEG) Urine Benzodiazepines Screen Pos (NEG) Urine Cocaine Screen Neg (NEG) Urine Cannabinoids Screen Pos (NEG) Urine Ethyl Alcohol Neg (NEG) Laboratory Tests Test 02/15/19 11:35 02/15/19 11:40 02/16/19 03:50 White Blood Count 16.4 x10^3/uL (4.0-11.0) 17.7 x10^3/uL (4.0-11.0) Red Blood Count 6.67 x10^6/uL (4.30-5.70) 5.96 x10^6/uL (4.30-5.70) Hemoglobin 20.9 g/dL (13.0-17.5) 18.8 g/dL (13.0-17.5) Hematocrit 61.1 % (39.0-53.0) 54.8 % (39.0-53.0) Mean Corpuscular Volume 92 fL (79-100) 92 fL (79-100) Mean Corpuscular Hemoglobin 31 pg (25-35) 32 pg (25-35) Mean Corpuscular Hemoglobin Concent 34 g/dL (31-37) 34 g/dL (31-37) Red Cell Distribution Width 13.6 % (11.5-14.5) 13.6 % (11.5-14.5) Platelet Count 261 x10^3/uL (140-400) 222 x10^3/uL (140-400) Neutrophils (%) (Auto) 73 % (31-73) 63 % (31-73) Lymphocytes (%) (Auto) 19 % (24-48) 27 % (24-48) Monocytes (%) (Auto) 7 % (0-9) 9 % (0-9) Eosinophils (%) (Auto) 1 % (0-3) 1 % (0-3) Basophils (%) (Auto) 1 % (0-3) 1 % (0-3) Neutrophils # (Auto) 12.0 x10^3/uL (1.8-7.7) 11.1 x10^3/uL (1.8-7.7) Lymphocytes # (Auto) 3.1 x10^3/uL (1.0-4.8) 4.7 x10^3/uL (1.0-4.8) Monocytes # (Auto) 1.1 x10^3/uL (0.0-1.1) 1.5 x10^3/uL (0.0-1.1) Eosinophils # (Auto) 0.1 x10^3/uL (0.0-0.7) 0.2 x10^3/uL (0.0-0.7) Basophils # (Auto) 0.1 x10^3/uL (0.0-0.2) 0.2 x10^3/uL (0.0-0.2) Sodium Level 140 mmol/L (136-145) 141 mmol/L (136-145) Potassium Level 4.6 mmol/L (3.5-5.1) 3.8 mmol/L (3.5-5.1) Chloride Level 102 mmol/L (98-107) 105 mmol/L (98-107) Carbon Dioxide Level 26 mmol/L (21-32) 27 mmol/L (21-32) Anion Gap 12 (6-14) 9 (6-14) Blood Urea Nitrogen 16 mg/dL (8-26) 17 mg/dL (8-26) Creatinine 1.1 mg/dL (0.7-1.3) 1.0 mg/dL (0.7-1.3) Estimated GFR (Cockcroft-Gault) 68.5 76.5 BUN/Creatinine Ratio 15 (6-20) 17 (6-20) Glucose Level 130 mg/dL (70-99) 116 mg/dL (70-99) Calcium Level 10.9 mg/dL (8.5-10.1) 9.0 mg/dL (8.5-10.1) Magnesium Level 1.9 mg/dL (1.8-2.4) Total Bilirubin 1.3 mg/dL (0.2-1.0) 1.3 mg/dL (0.2-1.0) Aspartate Amino Transf (AST/SGOT) 20 U/L (15-37) 15 U/L (15-37) Alanine Aminotransferase (ALT/SGPT) 24 U/L (16-63) 19 U/L (16-63) Alkaline Phosphatase 76 U/L (46-116) 62 U/L (46-116) Creatine Kinase 108 U/L (39-308) Creatine Kinase MB (Mass) 2.4 ng/mL (0.0-3.6) Creatine Kinase MB Relative Index 2.2 % (0-4) Troponin I Quantitative < 0.017 ng/mL (0.000-0.055) LC-[id number]-Type Natriuretic Peptide 457 pg/mL (0-124) Total Protein 8.2 g/dL (6.4-8.2) 7.3 g/dL (6.4-8.2) Albumin 4.4 g/dL (3.4-5.0) 3.6 g/dL (3.4-5.0) Albumin/Globulin Ratio 1.2 (1.0-1.7) 1.0 (1.0-1.7) Lipase 180 U/L (73-393) Ethyl Alcohol Level < 10 mg/dL (0-10) Urine Collection Type Unknown Urine Color [place] Urine Clarity Clear Urine pH 6.0 Urine Specific [place] 1.025 Urine Protein Negative mg/dL (NEG-TRACE) Urine Glucose (UA) Negative mg/dL (NEG) Urine Ketones (Stick) 40 mg/dL (NEG) Urine Blood Small (NEG) Urine Nitrite Negative (NEG) Urine Bilirubin Small (NEG) Urine Urobilinogen Dipstick 1.0 mg/dL (0.2 mg/dL) Urine Leukocyte Esterase Trace (NEG) Urine RBC 3-5 /HPF (0-2) Urine WBC 1-4 /HPF (0-4) Urine Squamous Epithelial Cells Few /LPF Urine Bacteria Few /HPF (0-FEW) Urine Mucus Mod /LPF Urine Opiates Screen Neg (NEG) Urine Methadone Screen Neg (NEG) Urine Barbiturates Neg (NEG) Urine Phencyclidine Screen Neg (NEG) Urine Amphetamine/Methamphetamine Neg (NEG) Urine Benzodiazepines Screen Pos (NEG) Urine Cocaine Screen Neg (NEG) Urine Cannabinoids Screen Pos (NEG) Urine Ethyl Alcohol Neg (NEG) Images Images CT abdomen pelvis with IV contrast Impression: Left renal superior pole heterogeneous mass which is of significant concern for renal cell carcinoma or other renal malignancy. Infrarenal fusiform abdominal aortic aneurysm. Bilateral L5 pars interarticularis fractures are chronic in appearance without malalignment. Assessment/Plan Assessment/Plan Left kidney mass with malignant features on imaging 6.1 x 5.4 x 7.3cm, superior pole, medial, posterior kidney Recommend intervention after acute resolved Will discuss management with CORNEL Gonsales MD 02/16/19 5839: UROLOGY CONSULT Assessment/Plan Assessment/Plan Patient seen and examined. CT images reviewed - 7 cm enhancing left renal mass - posterior / central. Lesion is very likely malignant and radical nephrectomy is recommended. Risks of nephrectomy discussed including bleeding, infection, renal failure, injury to urologic structures, renal failure, cardiopulmonary complications, . CABG 8 years ago. He is scheduled for cardiac catheterization next week. Will try to contact is cosmetic chemist to let him know that major surgery recommended in near future. Will refer to Urology as outpatient - his insurance is not contracted with me. KING CHASE Feb 16, 2019 09:55 CORNEL GOLDMAN MD Feb 16, 2019 16:25
--- NOTE | 2019-02-16 09:59 | PDOC2 ---
GI CONSULT Reason For Consult: Abd pain HPI: HPI: 58 y/o male who has been ill for a couple weeks. Has chronic low back pain that is unchanged. Describes some sinus congestion, watery eyes, and coughing - all have improved. Three days ago developed n/v w/o precipitating events - unable to keep anything down. Vaguely describes some abd pain as well. Last vomited "white" yesterday. No diarrhea or constipation. No hematemesis, hematochezia, or melena. Gained weight. H/o GERD controlled w/ pantoprazole QD but having heartburn right now. Occasional "gas bubbles in throat and food might sometimes get stuck - ongoing ?since intubated years ago. Not unusual to have n/v after "tasting all my meds." No previous EGD. Had a normal colonoscopy w/ Dr. Trimble in 01/2015 (done for screening and FH of CRC in his father). No GB, pancreas, liver or PUD history. No NSAIDs. H/o polycythemia followed by Dr. Hall. Bone marrow biopsy in 2015 w/ absent iron stores. Chart lists h/o hemochromatosis - he denies. On Plavix (?not here) and ASA w/ h/o CAD. PMH: PMH: CAD, HTN, HLD, chronic back pain, AAA, depression, seizure, ?brain injury CABG, bone marrow biopsy FH: Family History: Cancer (father - colon) Social History: Smoke: Quit ALCOHOL: none Drugs: Marijuana ROS: GEN: Denies fevers, chills, sweats HEENT: +sinus congestion CV: Denies chest pain RESP: +cough GI: Per HPI : Denies hematuria, dysuria ENDO: +weight gain NEURO: Denies confusion, dizziness MSK: +chronic back apin SKIN: Denies jaundice, pruritus Vitals: Vitals: Vital Signs Date Time Temp Pulse Resp B/P (MAP) Pulse Ox O2 Delivery O2 Flow Rate FiO2 02/16/19 07:00 97.8 56 16 122/77 (92) 98 Room Air 97.8 Labs: Labs: Laboratory Tests Test 02/15/19 11:35 02/15/19 11:40 02/16/19 03:50 White Blood Count 16.4 x10^3/uL (4.0-11.0) 17.7 x10^3/uL (4.0-11.0) Red Blood Count 6.67 x10^6/uL (4.30-5.70) 5.96 x10^6/uL (4.30-5.70) Hemoglobin 20.9 g/dL (13.0-17.5) 18.8 g/dL (13.0-17.5) Hematocrit 61.1 % (39.0-53.0) 54.8 % (39.0-53.0) Mean Corpuscular Volume 92 fL (79-100) 92 fL (79-100) Mean Corpuscular Hemoglobin 31 pg (25-35) 32 pg (25-35) Mean Corpuscular Hemoglobin Concent 34 g/dL (31-37) 34 g/dL (31-37) Red Cell Distribution Width 13.6 % (11.5-14.5) 13.6 % (11.5-14.5) Platelet Count 261 x10^3/uL (140-400) 222 x10^3/uL (140-400) Neutrophils (%) (Auto) 73 % (31-73) 63 % (31-73) Lymphocytes (%) (Auto) 19 % (24-48) 27 % (24-48) Monocytes (%) (Auto) 7 % (0-9) 9 % (0-9) Eosinophils (%) (Auto) 1 % (0-3) 1 % (0-3) Basophils (%) (Auto) 1 % (0-3) 1 % (0-3) Neutrophils # (Auto) 12.0 x10^3/uL (1.8-7.7) 11.1 x10^3/uL (1.8-7.7) Lymphocytes # (Auto) 3.1 x10^3/uL (1.0-4.8) 4.7 x10^3/uL (1.0-4.8) Monocytes # (Auto) 1.1 x10^3/uL (0.0-1.1) 1.5 x10^3/uL (0.0-1.1) Eosinophils # (Auto) 0.1 x10^3/uL (0.0-0.7) 0.2 x10^3/uL (0.0-0.7) Basophils # (Auto) 0.1 x10^3/uL (0.0-0.2) 0.2 x10^3/uL (0.0-0.2) Sodium Level 140 mmol/L (136-145) 141 mmol/L (136-145) Potassium Level 4.6 mmol/L (3.5-5.1) 3.8 mmol/L (3.5-5.1) Chloride Level 102 mmol/L (98-107) 105 mmol/L (98-107) Carbon Dioxide Level 26 mmol/L (21-32) 27 mmol/L (21-32) Anion Gap 12 (6-14) 9 (6-14) Blood Urea Nitrogen 16 mg/dL (8-26) 17 mg/dL (8-26) Creatinine 1.1 mg/dL (0.7-1.3) 1.0 mg/dL (0.7-1.3) Estimated GFR (Cockcroft-Gault) 68.5 76.5 BUN/Creatinine Ratio 15 (6-20) 17 (6-20) Glucose Level 130 mg/dL (70-99) 116 mg/dL (70-99) Calcium Level 10.9 mg/dL (8.5-10.1) 9.0 mg/dL (8.5-10.1) Magnesium Level 1.9 mg/dL (1.8-2.4) Total Bilirubin 1.3 mg/dL (0.2-1.0) 1.3 mg/dL (0.2-1.0) Aspartate Amino Transf (AST/SGOT) 20 U/L (15-37) 15 U/L (15-37) Alanine Aminotransferase (ALT/SGPT) 24 U/L (16-63) 19 U/L (16-63) Alkaline Phosphatase 76 U/L (46-116) 62 U/L (46-116) Creatine Kinase 108 U/L (39-308) Creatine Kinase MB (Mass) 2.4 ng/mL (0.0-3.6) Creatine Kinase MB Relative Index 2.2 % (0-4) Troponin I Quantitative < 0.017 ng/mL (0.000-0.055) [id number]-Type Natriuretic Peptide 457 pg/mL (0-124) Total Protein 8.2 g/dL (6.4-8.2) 7.3 g/dL (6.4-8.2) Albumin 4.4 g/dL (3.4-5.0) 3.6 g/dL (3.4-5.0) Albumin/Globulin Ratio 1.2 (1.0-1.7) 1.0 (1.0-1.7) Lipase 180 U/L (73-393) Ethyl Alcohol Level < 10 mg/dL (0-10) Urine Collection Type Unknown Urine Color [place] Urine Clarity Clear Urine pH 6.0 Urine Specific [place] 1.025 Urine Protein Negative mg/dL (NEG-TRACE) Urine Glucose (UA) Negative mg/dL (NEG) Urine Ketones (Stick) 40 mg/dL (NEG) Urine Blood Small (NEG) Urine Nitrite Negative (NEG) Urine Bilirubin Small (NEG) Urine Urobilinogen Dipstick 1.0 mg/dL (0.2 mg/dL) Urine Leukocyte Esterase Trace (NEG) Urine RBC 3-5 /HPF (0-2) Urine WBC 1-4 /HPF (0-4) Urine Squamous Epithelial Cells Few /LPF Urine Bacteria Few /HPF (0-FEW) Urine Mucus Mod /LPF Urine Opiates Screen Neg (NEG) Urine Methadone Screen Neg (NEG) Urine Barbiturates Neg (NEG) Urine Phencyclidine Screen Neg (NEG) Urine Amphetamine/Methamphetamine Neg (NEG) Urine Benzodiazepines Screen Pos (NEG) Urine Cocaine Screen Neg (NEG) Urine Cannabinoids Screen Pos (NEG) Urine Ethyl Alcohol Neg (NEG) Allergies: Coded Allergies: Penicillins (Verified Allergy, Intermediate, Rash, 02/18/15) Medications: Current Medications Medications (Trade) Dose Ordered Sig/Demian Route PRN Reason Start Time Stop Time Status Last Admin Dose Admin Morphine Sulfate (Morphine Sulfate) 4 mg PRN Q15MIN PRN IV/SQ PAIN GREATER THAN 3/10 02/15/19 11:45 02/16/19 11:44 02/15/19 12:04 Ondansetron HCl (Zofran) 4 mg 1X ONCE IV 02/15/19 11:45 02/15/19 11:46 DC 02/15/19 12:05 Famotidine (Pepcid Vial) 20 mg 1X ONCE IVP 02/15/19 11:45 02/15/19 11:46 DC 02/15/19 12:05 Iohexol (Omnipaque 300 Mg/ml) 75 ml 1X ONCE IV 02/15/19 13:00 02/15/19 13:06 DC 02/15/19 13:11 Alprazolam (Xanax) 0.5 mg 1X ONCE PO 02/15/19 17:45 02/15/19 17:47 DC 02/15/19 17:51 Clonidine HCl (Catapres) 0.1 mg 1X ONCE PO 02/15/19 17:45 02/15/19 17:47 DC 02/15/19 17:54 Atorvastatin Calcium (Lipitor) 40 mg QHS PO 02/15/19 21:00 02/15/19 21:01 Enoxaparin Sodium (Lovenox 40mg Syringe) 40 mg Q24H SQ 02/15/19 18:00 02/15/19 20:00 Morphine Sulfate (Morphine Sulfate) 4 mg PRN Q2HR PRN IV PAIN 02/15/19 18:15 02/16/19 18:14 02/16/19 01:53 Dextrose/Sodium Chloride 1,000 ml @ 75 mls/hr [id number] IV 02/15/19 18:30 02/15/19 20:15 Imaging: Imaging: CT A/P Impression: Left renal superior pole heterogeneous mass which is of significant concern for renal cell carcinoma or other renal malignancy. Infrarenal fusiform abdominal aortic aneurysm. Bilateral L5 pars interarticularis fractures are chronic in appearance without malalignment. Lumbar X-Ray Impression: Alignment is unremarkable. Infrarenal abdominal aortic aneurysm. L5 pars interarticularis fracture involvement. CXR IMPRESSION: No acute cardiopulmonary process. PE: GEN: NAD HEENT: Atraumatic, PERRL LUNGS: clear anteriorly - occasional cough HEART: RRR ABD: NABS, S/ND/NT EXTREMITY: No edema SKIN: No rashes, no jaundice NEURO/PSYCH: A & O 3 A/P: A/P: N/v, abd pain Leukocytosis Abnormal CT - left renal mass, AAA GERD - on PPI ?intermittent dysphagia - chronic CRC screen, FH CRC - UTD Polycythemia, h/o bone marrow biopsy w/ absent iron stores CAD Chronic back pain - stable -- Vascular and urology to see. Keep on PPI, would benefit from EGD at some point. Okay to try eating per GI. DANIA DEVLIN Feb 16, 2019 09:59
[2019-02-16] MEDS: IV DEXTROSE 5 %-0.45 % NACL 1,000 ML IV SCH ×2 (10:17→20:54)
[2019-02-16] MEDS: PANTOPRAZOLE 40 MG TABLET.DR. PO SCH (10:27)
[2019-02-16] MEDS: LISINOPRIL 5 MG TABLET. PO SCH (10:28)
[2019-02-16] MEDS: CITALOPRAM 20 MG TABLET. PO SCH (10:28)
[2019-02-16] MEDS: ASPIRIN CHEWABLE 81 MG TABLET. PO SCH (10:28)
--- NOTE | 2019-02-16 10:46 | PDOC ---
Infectious Disease Note Vital Sign Vital Signs Vital Signs Date Time Temp Pulse Resp B/P (MAP) Pulse Ox O2 Delivery O2 Flow Rate FiO2 02/16/19 10:28 56 122/77 02/16/19 07:00 97.8 16 98 Room Air 97.8 Labs Lab Laboratory Tests Test 02/15/19 11:35 02/15/19 11:40 02/16/19 03:50 White Blood Count 16.4 x10^3/uL (4.0-11.0) 17.7 x10^3/uL (4.0-11.0) Red Blood Count 6.67 x10^6/uL (4.30-5.70) 5.96 x10^6/uL (4.30-5.70) Hemoglobin 20.9 g/dL (13.0-17.5) 18.8 g/dL (13.0-17.5) Hematocrit 61.1 % (39.0-53.0) 54.8 % (39.0-53.0) Mean Corpuscular Volume 92 fL (79-100) 92 fL (79-100) Mean Corpuscular Hemoglobin 31 pg (25-35) 32 pg (25-35) Mean Corpuscular Hemoglobin Concent 34 g/dL (31-37) 34 g/dL (31-37) Red Cell Distribution Width 13.6 % (11.5-14.5) 13.6 % (11.5-14.5) Platelet Count 261 x10^3/uL (140-400) 222 x10^3/uL (140-400) Neutrophils (%) (Auto) 73 % (31-73) 63 % (31-73) Lymphocytes (%) (Auto) 19 % (24-48) 27 % (24-48) Monocytes (%) (Auto) 7 % (0-9) 9 % (0-9) Eosinophils (%) (Auto) 1 % (0-3) 1 % (0-3) Basophils (%) (Auto) 1 % (0-3) 1 % (0-3) Neutrophils # (Auto) 12.0 x10^3/uL (1.8-7.7) 11.1 x10^3/uL (1.8-7.7) Lymphocytes # (Auto) 3.1 x10^3/uL (1.0-4.8) 4.7 x10^3/uL (1.0-4.8) Monocytes # (Auto) 1.1 x10^3/uL (0.0-1.1) 1.5 x10^3/uL (0.0-1.1) Eosinophils # (Auto) 0.1 x10^3/uL (0.0-0.7) 0.2 x10^3/uL (0.0-0.7) Basophils # (Auto) 0.1 x10^3/uL (0.0-0.2) 0.2 x10^3/uL (0.0-0.2) Sodium Level 140 mmol/L (136-145) 141 mmol/L (136-145) Potassium Level 4.6 mmol/L (3.5-5.1) 3.8 mmol/L (3.5-5.1) Chloride Level 102 mmol/L (98-107) 105 mmol/L (98-107) Carbon Dioxide Level 26 mmol/L (21-32) 27 mmol/L (21-32) Anion Gap 12 (6-14) 9 (6-14) Blood Urea Nitrogen 16 mg/dL (8-26) 17 mg/dL (8-26) Creatinine 1.1 mg/dL (0.7-1.3) 1.0 mg/dL (0.7-1.3) Estimated GFR (Cockcroft-Gault) 68.5 76.5 BUN/Creatinine Ratio 15 (6-20) 17 (6-20) Glucose Level 130 mg/dL (70-99) 116 mg/dL (70-99) Calcium Level 10.9 mg/dL (8.5-10.1) 9.0 mg/dL (8.5-10.1) Magnesium Level 1.9 mg/dL (1.8-2.4) Total Bilirubin 1.3 mg/dL (0.2-1.0) 1.3 mg/dL (0.2-1.0) Aspartate Amino Transf (AST/SGOT) 20 U/L (15-37) 15 U/L (15-37) Alanine Aminotransferase (ALT/SGPT) 24 U/L (16-63) 19 U/L (16-63) Alkaline Phosphatase 76 U/L (46-116) 62 U/L (46-116) Creatine Kinase 108 U/L (39-308) Creatine Kinase MB (Mass) 2.4 ng/mL (0.0-3.6) Creatine Kinase MB Relative Index 2.2 % (0-4) Troponin I Quantitative < 0.017 ng/mL (0.000-0.055) [id number]-[id number]-Type Natriuretic Peptide 457 pg/mL (0-124) Total Protein 8.2 g/dL (6.4-8.2) 7.3 g/dL (6.4-8.2) Albumin 4.4 g/dL (3.4-5.0) 3.6 g/dL (3.4-5.0) Albumin/Globulin Ratio 1.2 (1.0-1.7) 1.0 (1.0-1.7) Lipase 180 U/L (73-393) Ethyl Alcohol Level < 10 mg/dL (0-10) Urine Collection Type Unknown Urine Color [place] Urine Clarity Clear Urine pH 6.0 Urine Specific [place] 1.025 Urine Protein Negative mg/dL (NEG-TRACE) Urine Glucose (UA) Negative mg/dL (NEG) Urine Ketones (Stick) 40 mg/dL (NEG) Urine Blood Small (NEG) Urine Nitrite Negative (NEG) Urine Bilirubin Small (NEG) Urine Urobilinogen Dipstick 1.0 mg/dL (0.2 mg/dL) Urine Leukocyte Esterase Trace (NEG) Urine RBC 3-5 /HPF (0-2) Urine WBC 1-4 /HPF (0-4) Urine Squamous Epithelial Cells Few /LPF Urine Bacteria Few /HPF (0-FEW) Urine Mucus Mod /LPF Urine Opiates Screen Neg (NEG) Urine Methadone Screen Neg (NEG) Urine Barbiturates Neg (NEG) Urine Phencyclidine Screen Neg (NEG) Urine Amphetamine/Methamphetamine Neg (NEG) Urine Benzodiazepines Screen Pos (NEG) Urine Cocaine Screen Neg (NEG) Urine Cannabinoids Screen Pos (NEG) Urine Ethyl Alcohol Neg (NEG) Objective Assessment Leukocytosis Renal mass rule out malignancy Aortic aneurysm Abdominal pain Polycythemia Plan Plan of Care no antibiotics renal biopsy SHAW CAMERON MD Feb 16, 2019 10:46
[2019-02-16 11:00] VITALS: BP_SYST 122; BP_SYST 30; BP_DIAS 76; BP_DIAS 77
[2019-02-16] MEDS: ALPRAZolam 0.5 MG TABLET PO PRN (12:43)
--- NOTE | 2019-02-16 13:37 | PDOC ---
Provider Note Provider Note Vascular Surgery Consult dictated 58 year old male with newly diagnosed 4.3cm infrarenal AAA and a 7cm renal mass suspicious for carcinoma. The aneurysm has no signs of rupture and seems asympto matic. No surgical intervention is needed at this point for the aneurysm. Recommend aortic duplex scan in 6 months, will arrange with our office. Ok to proceed with urology intervention for his renal mass. NITA ARMSTRONG MD Feb 16, 2019 13:37
[2019-02-16 15:00] VITALS: BP 145/105
[2019-02-16] MEDS: ENOXAPARIN 40 MG/0.4 ML SYRINGE. SQ SCH (18:09)
[2019-02-16 19:00] VITALS: BP 135/81
[2019-02-16] MEDS: ATORVASTATIN CALCIUM 40 MG TABLET. PO SCH (20:54)
[2019-02-16 23:00] VITALS: BP 159/88
[2019-02-17] VITALS (7 sets, daily range): BP systolic 105–157; BP diastolic 54–87
--- NOTE | 2019-02-17 02:26 | CONS ---
DATE OF CONSULTATION: 02/16/2019 REQUESTING PHYSICIAN: Mariposa Trimble MD REASON FOR CONSULTATION: Leukocytosis. HISTORY OF PRESENT ILLNESS: This is a 58-year-old gentleman, who was admitted with chronic back pain; more acute; 3-day origin, nausea, vomiting, some abdominal discomfort, although he denies any discomfort now. He denied any fever. The patient was noted to have a white count of 16,000. CT of the abdomen and pelvis showed renal mass and aortic aneurysm. The patient is going to be undergoing workup for that. The patient denies any nausea, vomiting, diarrhea now. Denies any chest pain or abdominal pain. He does have some back pain. Denies any other complaints. The patient does have polycythemia history and 500 mL of blood is taken out off and on he says. PAST MEDICAL HISTORY: Positive for polycythemia, chronic back problem, coronary artery disease with [place] in the past, hypertension, anxiety, depression. The patient has had coronary artery bypass grafting done in the past. SOCIAL HISTORY: Negative for smoking, alcohol use or drug use. ALLERGIES: LISTED ALLERGIC TO PENICILLIN. CURRENT MEDICATIONS: Reviewed. The patient is not on any antibiotics. REVIEW OF SYSTEMS: As per HPI, all other systems reviewed and are negative. PHYSICAL EXAMINATION: GENERAL: Alert, oriented gentleman, not in any distress. VITAL SIGNS: Stable, afebrile. HEENT: NAD. NECK: Supple. No JVP. No lymphadenopathy. LUNGS: Clear. HEART: S1, S2 regular. ABDOMEN: Benign. EXTREMITIES: No edema or cyanosis. SKIN: Unremarkable. NEUROLOGIC: The patient is neurologically alert, awake and appropriate. No focal neurologic deficit. LABORATORY DATA: White count is 17.7, hemoglobin yesterday was 20.9, today is 18.8, platelets are normal. BUN and creatinine is normal. Chest x-ray is unremarkable. CT of the abdomen and pelvis showed there is 4.3 x 4.2 x 7.3-cm aneurysm. Also, there is left renal superior pole mass. IMPRESSION: 1. Leukocytosis, most likely secondary to polycythemia. He does not know what his baseline white count is. Either we will check with Dr. Trimble's office or Dr. Hlal should know through his records. There is no evidence for infection. Kidney malignancy is also known to cause leukocytosis. 2. Left renal mass, pending biopsy. 3. Aortic aneurysm. 4. Coronary artery disease. 5. Hypertension. 6. Anxiety. 7. Depression. RECOMMEND: I do not see the need for any antibiotics. Supportive care. We will check for the prior WBC and monitor as well as the patient needs renal biopsy for further management and also Vascular Surgery has been consulted for aneurysm. Thank you very much, Dr. Trimble, for giving me the opportunity to participate in this patient's care. SHAW CAMERON MD DR: NILDA/jarrett JOB#: [id number] / [id number]
--- NOTE | 2019-02-17 03:28 | CONS ---
DATE OF CONSULTATION: 02/16/2019 MEDICAL ONCOLOGY CONSULTATION REPORT REQUESTING PHYSICIAN: Mariposa Trimble MD REASON FOR CONSULTATION: Polycythemia. HISTORY OF PRESENT ILLNESS: The patient is a 58-year-old gentleman who was noted to have polycythemia with hemoglobin of 20.4 and hematocrit of 61 on 12/11/2009. He was evaluated by Dr. Marbin Doyle and the patient had further workup done including JAK2 mutation studies, which was negative and erythropoietin level, which was low normal at 8.6. He had symptoms of flushing and pruritus and hence he was started on phlebotomy. Phlebotomies were beneficial clinically which helped with the symptoms of headaches, pruritus and flushing. He underwent bone marrow aspiration and biopsy that was negative for myeloproliferative disorder and he did not meet the clinical criteria for polycythemia vera. Hence phlebotomies were discontinued. JAK2 mutation studies were repeated by [employer] on 12/27/2018 which were again negative. Pulmonary consultation was obtained to evaluate for possible sleep apnea and evaluation was pending. He presented to [facility] on 02/15/2019 with a 3-day history of nausea, vomiting, headaches and low back pain. He was noted to have very high blood pressure of 197/95. Hence, he was admitted to [facility] for further management of hypertensive crisis. He underwent CT scan of the abdomen and pelvis on 02/15/2019 for evaluation of abdominal pain, which revealed a left renal superior pole heterogeneous mass concerning for renal cell carcinoma measuring 6.1 x 5.4 x 7.3 cm. X-ray of the lumbar spine on 02/16/2019 revealed infrarenal abdominal aortic aneurysm, L5 pars interarticularis fracture, degenerative changes. His hemoglobin was 20.9 with a hematocrit of 61.1 on 02/15/2019 and hence I was consulted for further evaluation and management. PAST MEDICAL HISTORY: Coronary artery disease, CABG, myocardial infarction, seizures, polycythemia as described above, depression, anxiety, low back pain from lumbar fractures and transverse process fractures, hypertension. SOCIAL HISTORY: He quit smoking in 2007. He is . FAMILY HISTORY: Positive for lung cancer and prostate cancer and colon cancer. REVIEW OF SYSTEMS: A 12-point review of system was performed. Pertinent positives are mentioned in the history of present illness. Rest of the system review is negative. PHYSICAL EXAMINATION: GENERAL APPEARANCE: The patient is a 58-year-old gentleman who is in no acute cardiorespiratory distress. VITAL SIGNS: Blood pressure 122/77, temperature 97.8. HEAD: Atraumatic, normocephalic. EYES: No icterus. NECK: Supple. CHEST: Bilaterally symmetrical. HEART: S1, S2 normal. ABDOMEN: Soft, nontender. CENTRAL NERVOUS SYSTEM: No focal deficits. LYMPHATICS: No lymphadenopathy. SKIN: No rashes. PSYCHOLOGIC: Mood and affect are appropriate. LABORATORY DATA: WBC 17.7, hemoglobin 18.8, platelet count is 222, hematocrit 54.8, creatinine 1.0, calcium 9.0, total bilirubin 1.3, AST 15, ALT 19, alkaline phosphatase 62, total protein 7.3, albumin 3.6. IMPRESSION AND PLAN: 1. Polycythemia. He does not meet the criteria for polycythemia vera. JAK2 mutation, erythropoietin level and bone marrow biopsy were all unremarkable. I would continue supportive care. Hemoglobin was 20.9 on 02/15/2019 and it has improved to 18.8 on 02/16/2019. CT scan of the abdomen on 02/15/2019 revealed a 7.3 cm mass in the left kidney. Polycythemia is one of the paraneoplastic syndromes associated with renal cell carcinoma, which has been associated with erythropoietin production from renal carcinoma cells. Hence, I will check the erythropoietin level. 2. Left renal mass. Consult Urology. Appreciate Urology evaluation and management. 3. Hypertensive crisis, management per Dr. Trimble. AZALEA HANSON MD DR: BIANCA/jarrett JOB#: [id number] / [id number] RACHNA
--- NOTE | 2019-02-17 03:44 | CONS ---
DATE OF CONSULTATION: 02/16/2019 CHIEF COMPLAINT: Abdominal aortic aneurysm. HISTORY OF PRESENT ILLNESS: The patient is a 58-year-old male who presents to the Emergency Room after not feeling well for the past 2 weeks. He has had nausea, vomiting, loss of appetite, abdominal pain and constipation. During his evaluation here in the hospital, he had significant elevation of his blood pressure on admission, systolic blood pressures in the 190s. He underwent a CT scan with contrast of his abdomen and pelvis, which a newly diagnosed a 7-cm left kidney mass suspicious for renal carcinoma. He also was found to have a 4.3 cm infrarenal abdominal aortic aneurysm with no signs of rupture and chronic lumbar fractures. He was admitted to the hospital. He is undergoing an extensive evaluation by Urology and Nephrology for his renal mass and is set up for biopsy today. His hypertensive crisis has been treated with blood pressure medication. For his abdominal aortic aneurysm, this is a new diagnosis, he did not know that he had in the past. He has had long-term chronic back pain since an injury approximately 40 years ago. The pain is similar to his chronic pain at this time. He does have a diffuse mild abdominal discomfort, which has been associated with nausea and vomiting for the past 2 weeks. He reports no pain in his legs at rest or during ambulation. He has had no history of strokes in the past. He has no known history of aneurysm disease in his family. REVIEW OF SYSTEMS: The patient does report being very anxious with this new diagnosis which has just been brought him today. REVIEW OF SYSTEMS: Otherwise, there are no other complaints besides what is mentioned in the history of present illness. PAST MEDICAL HISTORY: Includes: 1. Polycythemia vera. 2. Hypertension. 3. Depression and anxiety. 4. Seizure disorder. 5. Brain injury in 1992. 6. Chronic back pain from his chronic lumbar fractures. 7. Coronary artery disease. 8. Hypertension. 9. Allergic rhinitis. PAST SURGICAL HISTORY: Includes; 1. Coronary artery bypass graft done in 2007. 2. Bone marrow biopsy. ALLERGIES: INCLUDE PENICILLIN. FAMILY HISTORY: Significant for coronary artery disease. SOCIAL HISTORY: He does not smoke. PHYSICAL EXAMINATION: GENERAL: The patient is awake and alert. He is very anxious; however, he is in no distress. VITAL SIGNS: Blood pressure most recently is 122/77, pulse of 59. He is afebrile and he is 96% on room air. NECK: Supple with no carotid bruits heard. HEART: Regular rate rhythm without murmurs. LUNGS: Clear to auscultation bilaterally. ABDOMEN: Soft, nondistended, nontender to deep palpation in all four quadrants. He has no peritoneal signs, no guarding or rebound. He does have a small umbilical hernia on examination. EXTREMITIES: His bilateral lower extremities are warm with normal palpable popliteal pulses. There is no widening of these pulses, he has palpable dorsalis pedis and posterior tibial pulses in his feet. There is no tissue breakdown in his feet and they were pink and healthy without edema. NEUROLOGIC: He is awake and alert, oriented x 3, moving all 4 extremities with normal strength, normal speech, no gross neurologic deficits. IMAGING: I reviewed his CT scan of the abdomen and pelvis with contrast, which shows what I measured at maximum of a 4.1 cm infrarenal abdominal aortic aneurysm, there is no surrounding inflammation or hematoma, no signs of rupture, he has a normal appearance of intramural thrombus within the aneurysm and patency of his iliac vessels. He would be an endovascular stent graft candidate for repair if a repair was needed in the future. IMPRESSION: 1. A 4.3 cm infrarenal abdominal aortic aneurysm, which is seemingly asymptomatic. 2. Newly diagnosed 7 cm right renal kidney mass suspicious for carcinoma. 3. Hypertension. PLAN: The patient has a 4.3 cm infrarenal abdominal aortic aneurysm with no signs of rupture. This seems to be asymptomatic at this point. At this size, he does not need surgical intervention. I would recommend monitoring his aneurysm in the future with an aortic duplex scan in 6 months. If this grows to a size of 5 cm or greater, we will consider surgical repair, likely with an endograft in the future. He is undergoing workup for his newly diagnosed renal mass with biopsy being performed today. He will likely need surgical resection of this mass which I think there is no contraindication for surgery from a vascular standpoint. NITA ARMSTRONG MD DR: MADHAV/jarrett JOB#: [id number] / [id number]
[2019-02-17] MEDS ORDERED: PANTOPRAZOLE 40 MG TABLET.DR. PO SCH (07:30)
[2019-02-17] MEDS: PANTOPRAZOLE 40 MG TABLET.DR. PO SCH (07:54)
[2019-02-17 09:14] LABS: BASO # 0.1 x10^3/uL (0.0-0.2); BASO % 1 % (0-3); EOS # 0.1 x10^3/uL (0.0-0.7); EOS % 1 % (0-3); HEMATOCRIT 55.9 % (39.0-53.0); HEMOGLOBIN 19.3 g/dL (13.0-17.5); LYMPH # 3.8 x10^3/uL (1.0-4.8); LYMPH % 27 % (24-48); MEAN CORPUSCULAR HEMOGLOBIN 32 pg (25-35); MEAN CORPUSCULAR HGB CONC 35 g/dL (31-37); MEAN CORPUSCULAR VOLUME 92 fL (79-100); MONO # 1.3 x10^3/uL (0.0-1.1); MONO % 9 % (0-9); NEUT # 8.8 x10^3/uL (1.8-7.7); NEUT % 62 % (31-73); PLATELET COUNT 213 x10^3/uL (140-400); RED BLOOD COUNT 6.07 x10^6/uL (4.30-5.70); RED CELL DISTRIBUTION WIDTH 13.4 % (11.5-14.5); WHITE BLOOD COUNT 14.1 x10^3/uL (4.0-11.0)
[2019-02-17] MEDS: CITALOPRAM 20 MG TABLET. PO SCH (09:15)
[2019-02-17] MEDS: ASPIRIN CHEWABLE 81 MG TABLET. PO SCH (09:15)
[2019-02-17] MEDS: CARVEDILOL 3.125 MG TABLET. PO SCH ×2 (09:15→17:21)
[2019-02-17] MEDS: LISINOPRIL 5 MG TABLET. PO SCH (09:16)
[2019-02-17] MEDS: ALPRAZolam 0.5 MG TABLET PO PRN ×2 (09:16→23:32)
[2019-02-17 09:25] LABS: ALBUMIN 3.7 g/dL (3.4-5.0); ALBUMIN/GLOBULIN RATIO 0.9 (1.0-1.7); CALCIUM 9.4 mg/dL (8.5-10.1); GFR 76.5; POTASSIUM 4.1 mmol/L (3.5-5.1)
--- NOTE | 2019-02-17 09:48 | PDOC ---
IM PROGRESS NOTES- Subjective Subjective Abdominal pain,nausea improving.Has panic attacks,tightness of chest. Objective Vitals/I&O Vital Signs Date Time Temp Pulse Resp B/P (MAP) Pulse Ox O2 Delivery O2 Flow Rate FiO2 02/17/19 09:16 58 148/83 02/17/19 08:00 Room Air 02/17/19 07:00 97.5 18 95 97.5 I & O 02/16/19 02/16/19 02/17/19 15:00 23:00 07:00 Intake Total 0 ml 0 ml 0 ml Output Total 600 ml Balance 0 ml 0 ml -600 ml Physical Exam Physical Exam General appearance - alert,well appearing, and in no distress and oriented to person, place, and time Mental Status - alert, oriented to person, place, and time, anxious Head - normal Chest - clear to auscultation, no wheezes, rales or rhonchi, symmetric air entry Heart - S1 and S2 normal Abdomen - soft, nontender, nondistended, no masses or organomegaly Neurological - alert and oriented,anxious Musculoskeletal - no muscular tenderness noted Extremities - no pedal edema Skin - warm and dry Labs Laboratory Tests Test 02/17/19 08:25 White Blood Count 14.1 x10^3/uL (4.0-11.0) H Red Blood Count 6.07 x10^6/uL (4.30-5.70) H Hemoglobin 19.3 g/dL (13.0-17.5) H Hematocrit 55.9 % (39.0-53.0) H Mean Corpuscular Volume 92 fL (79-100) Mean Corpuscular Hemoglobin 32 pg (25-35) Mean Corpuscular Hemoglobin Concent 35 g/dL (31-37) Red Cell Distribution Width 13.4 % (11.5-14.5) Platelet Count 213 x10^3/uL (140-400) Neutrophils (%) (Auto) 62 % (31-73) Lymphocytes (%) (Auto) 27 % (24-48) Monocytes (%) (Auto) 9 % (0-9) Eosinophils (%) (Auto) 1 % (0-3) Basophils (%) (Auto) 1 % (0-3) Neutrophils # (Auto) 8.8 x10^3/uL (1.8-7.7) H Lymphocytes # (Auto) 3.8 x10^3/uL (1.0-4.8) Monocytes # (Auto) 1.3 x10^3/uL (0.0-1.1) H Eosinophils # (Auto) 0.1 x10^3/uL (0.0-0.7) Basophils # (Auto) 0.1 x10^3/uL (0.0-0.2) Sodium Level 136 mmol/L (136-145) Potassium Level 4.1 mmol/L (3.5-5.1) Chloride Level 104 mmol/L (98-107) Carbon Dioxide Level 20 mmol/L (21-32) L Anion Gap 12 (6-14) Blood Urea Nitrogen 13 mg/dL (8-26) Creatinine 1.0 mg/dL (0.7-1.3) Estimated GFR (Cockcroft-Gault) 76.5 BUN/Creatinine Ratio 13 (6-20) Glucose Level 128 mg/dL (70-99) H Calcium Level 9.4 mg/dL (8.5-10.1) Total Bilirubin 2.0 mg/dL (0.2-1.0) H Aspartate Amino Transferase (AST) 18 U/L (15-37) Alanine Aminotransferase (ALT) 15 U/L (16-63) L Alkaline Phosphatase 65 U/L (46-116) Total Protein 8.0 g/dL (6.4-8.2) Albumin 3.7 g/dL (3.4-5.0) Albumin/Globulin Ratio 0.9 (1.0-1.7) L Laboratory Tests 02/17/19 08:25 Laboratory Tests 02/17/19 08:25 Meds Current Medications Medications (Trade) Dose Ordered Sig/Demian Route PRN Reason Start Time Stop Time Status Last Admin Dose Admin Carvedilol (Coreg) 3.125 mg BIDWMEALS PO 02/17/19 09:00 02/17/19 09:15 Assessment Assessment 1. Acute hypertensive crisis. 2. Abdominal pain. 3. Vomiting. 4. Left renal mass, possibly renal cell carcinoma. 5. Polycythemia vera, much worse. 6. Dyspnea. 7. Aortic aneurysm, 4.3 cm in size with thrombus. 8. Coronary artery disease. 9. History of coronary artery bypass graft. 10. Depression. 11. Anxiety. 12. Marijuana abuse. 13. Dependence on Xanax. 14. Seizure disorder. 15. History of brain injury. PLAN: We will consult Dr. Hall for evaluation of his polycythemia. He may be also dehydrated. I will give him some IV fluids. He was supposed to get a sleep study ordered by Dr. Hall. Leukocytosis may be due to polycythemia, but because of his dyspnea, cough, and sinus congestion, I will also consult Dr. Marck Montague for Infectious Disease evaluation and management. He also has had significant nausea, vomiting, and abdominal pain. Consult Dr. Viramontes for Urology evaluation and management and Dr. Whitehead for Vascular Surgery evaluation and management because of the thrombus in the aneurysm. We will give him IV fluids. I will order x-rays of the chest and lumbar spine. I will start him on Lovenox 40 mg subcutaneous daily. Continue other medications. I will put him back on aspirin. I will hold Plavix for now in case if any procedure is planned. For details, please refer to the orders. I will also give him clonidine 0.1 mg q. 6 hours p.r.n. for systolic blood pressure more than 160. For details, please refer to the orders. Polycythemia,Leukocytosis - improving.Polycythemia is not primary. ? Secondary c ause- DEUCE/Renal etc. Consult . D/w . Hypertensive crisis improving. Chest x ray no acute changes. Anxiety/Panic attacks- continue Xanax .Not taking Lexapro.Advised to take regularly. ? Renal cell carcinoma.Urologist recommends radical nephrectomy at . Aortic aneurysm- 4.3 cm with clot.Repeat CT in 6 mths per . CAD- ? symptomatic.Had seen - ? cardiac cath planned.Consult rn first assistant. Labs pending D/w patient Plan Plan For more details regarding further plans, please refer to the orders. BETO DALEY MD Feb 17, 2019 09:48
--- NOTE | 2019-02-17 10:48 | EKG ---
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
--- NOTE | 2019-02-17 12:00 | PDOC ---
Subjective: Subjective: Hungry. No n/v or abd pain. Tells me again about chronic swallowing issues - none today. Objective: Objective: Reviewed w/ nurse - ?renal biopsy here - ultimately nephrectomy at [facility]. Pulm and cardiology to see. Vascular recs to monitor AAA w/ imaging. Vital Signs: Vital Signs Date Time Temp Pulse Resp B/P (MAP) Pulse Ox O2 Delivery O2 Flow Rate FiO2 02/17/19 09:16 58 148/83 02/17/19 08:00 Room Air 02/17/19 07:00 97.5 18 95 97.5 Labs: Laboratory Tests Test 02/17/19 08:25 White Blood Count 14.1 x10^3/uL Red Blood Count 6.07 x10^6/uL Hemoglobin 19.3 g/dL Hematocrit 55.9 % Mean Corpuscular Volume 92 fL Mean Corpuscular Hemoglobin 32 pg Mean Corpuscular Hemoglobin Concent 35 g/dL Red Cell Distribution Width 13.4 % Platelet Count 213 x10^3/uL Neutrophils (%) (Auto) 62 % Lymphocytes (%) (Auto) 27 % Monocytes (%) (Auto) 9 % Eosinophils (%) (Auto) 1 % Basophils (%) (Auto) 1 % Neutrophils # (Auto) 8.8 x10^3/uL Lymphocytes # (Auto) 3.8 x10^3/uL Monocytes # (Auto) 1.3 x10^3/uL Eosinophils # (Auto) 0.1 x10^3/uL Basophils # (Auto) 0.1 x10^3/uL Sodium Level 136 mmol/L Potassium Level 4.1 mmol/L Chloride Level 104 mmol/L Carbon Dioxide Level 20 mmol/L Anion Gap 12 Blood Urea Nitrogen 13 mg/dL Creatinine 1.0 mg/dL Estimated GFR (Cockcroft-Gault) 76.5 BUN/Creatinine Ratio 13 Glucose Level 128 mg/dL Calcium Level 9.4 mg/dL Total Bilirubin 2.0 mg/dL Aspartate Amino Transf (AST/SGOT) 18 U/L Alanine Aminotransferase (ALT/SGPT) 15 U/L Alkaline Phosphatase 65 U/L Total Protein 8.0 g/dL Albumin 3.7 g/dL Albumin/Globulin Ratio 0.9 PE: GEN: NAD LUNGS: CTAB HEART: RRR ABD: S/ND/NT NEURO/PSYCH: A & O 3 A/P: N/v, abd pain - resolved GERD w/ chronic/intermittent dysphagia - on PPI Elevated bilirubin - unremarkable liver on CT Renal mass, AAA SOA, CAD, polycythemia -- Improved GI-doll. Continue PPI. EGD at some point. DANIA DEVLIN Feb 17, 2019 12:00
--- NOTE | 2019-02-17 12:17 | PDOC ---
PROGRESS NOTES Subjective Subjective HPI - f/u of Polycythemia ROS - headaches better Objective Objective Vital Signs Date Time Temp Pulse Resp B/P (MAP) Pulse Ox O2 Delivery O2 Flow Rate FiO2 02/17/19 09:16 58 148/83 02/17/19 08:00 Room Air 02/17/19 07:00 97.5 18 95 97.5 Intake and Output 02/17/19 07:00 Intake Total 0 ml Output Total 600 ml Balance -600 ml Intake Oral 0 ml Output Urine Total 600 ml Physical Exam Heart: Normal S1, Normal S2 General: Alert, Oriented X3, No acute distress Neuro: Normal speech Psych/Mental Status: Mental status NL Assessment Assessment Problems Medical Problems: (1) Abdominal pain Status: Acute (2) Urinary tract infection Status: Acute (3) Vomiting and diarrhea Status: Acute IMPRESSION AND PLAN: 1. Polycythemia. He does not meet the criteria for polycythemia vera. JAK2 mutation, erythropoietin level and bone marrow biopsy were all unremarkable. I would continue supportive care. Hemoglobin was 20.9 on 02/15/2019 and it has improved to 18.8 on 02/16/2019. CT scan of the abdomen on 02/15/2019 revealed a 7.3 cm mass in the left kidney. Polycythemia is one of the paraneoplastic syndromes associated with renal cell carcinoma, which has been associated with erythropoietin production from renal carcinoma cells. Hence, I will check the erythropoietin level. Hb 19.3 on 02/17/19. 2. Left renal mass. Appreciate Urology evaluation and management. 3. Hypertensive crisis, management per Dr. Trimble. Comment Review of Relevant I have reviewed the following items janae (where applicable) has been applied. Labs Laboratory Tests Test 02/16/19 03:50 02/17/19 08:25 White Blood Count 17.7 x10^3/uL (4.0-11.0) 14.1 x10^3/uL (4.0-11.0) Red Blood Count 5.96 x10^6/uL (4.30-5.70) 6.07 x10^6/uL (4.30-5.70) Hemoglobin 18.8 g/dL (13.0-17.5) 19.3 g/dL (13.0-17.5) Hematocrit 54.8 % (39.0-53.0) 55.9 % (39.0-53.0) Mean Corpuscular Volume 92 fL (79-100) 92 fL (79-100) Mean Corpuscular Hemoglobin 32 pg (25-35) 32 pg (25-35) Mean Corpuscular Hemoglobin Concent 34 g/dL (31-37) 35 g/dL (31-37) Red Cell Distribution Width 13.6 % (11.5-14.5) 13.4 % (11.5-14.5) Platelet Count 222 x10^3/uL (140-400) 213 x10^3/uL (140-400) Neutrophils (%) (Auto) 63 % (31-73) 62 % (31-73) Lymphocytes (%) (Auto) 27 % (24-48) 27 % (24-48) Monocytes (%) (Auto) 9 % (0-9) 9 % (0-9) Eosinophils (%) (Auto) 1 % (0-3) 1 % (0-3) Basophils (%) (Auto) 1 % (0-3) 1 % (0-3) Neutrophils # (Auto) 11.1 x10^3/uL (1.8-7.7) 8.8 x10^3/uL (1.8-7.7) Lymphocytes # (Auto) 4.7 x10^3/uL (1.0-4.8) 3.8 x10^3/uL (1.0-4.8) Monocytes # (Auto) 1.5 x10^3/uL (0.0-1.1) 1.3 x10^3/uL (0.0-1.1) Eosinophils # (Auto) 0.2 x10^3/uL (0.0-0.7) 0.1 x10^3/uL (0.0-0.7) Basophils # (Auto) 0.2 x10^3/uL (0.0-0.2) 0.1 x10^3/uL (0.0-0.2) Sodium Level 141 mmol/L (136-145) 136 mmol/L (136-145) Potassium Level 3.8 mmol/L (3.5-5.1) 4.1 mmol/L (3.5-5.1) Chloride Level 105 mmol/L (98-107) 104 mmol/L (98-107) Carbon Dioxide Level 27 mmol/L (21-32) 20 mmol/L (21-32) Anion Gap 9 (6-14) 12 (6-14) Blood Urea Nitrogen 17 mg/dL (8-26) 13 mg/dL (8-26) Creatinine 1.0 mg/dL (0.7-1.3) 1.0 mg/dL (0.7-1.3) Estimated GFR (Cockcroft-Gault) 76.5 76.5 BUN/Creatinine Ratio 17 (6-20) 13 (6-20) Glucose Level 116 mg/dL (70-99) 128 mg/dL (70-99) Calcium Level 9.0 mg/dL (8.5-10.1) 9.4 mg/dL (8.5-10.1) Total Bilirubin 1.3 mg/dL (0.2-1.0) 2.0 mg/dL (0.2-1.0) Aspartate Amino Transf (AST/SGOT) 15 U/L (15-37) 18 U/L (15-37) Alanine Aminotransferase (ALT/SGPT) 19 U/L (16-63) 15 U/L (16-63) Alkaline Phosphatase 62 U/L (46-116) 65 U/L (46-116) Total Protein 7.3 g/dL (6.4-8.2) 8.0 g/dL (6.4-8.2) Albumin 3.6 g/dL (3.4-5.0) 3.7 g/dL (3.4-5.0) Albumin/Globulin Ratio 1.0 (1.0-1.7) 0.9 (1.0-1.7) Laboratory Tests Test 02/17/19 08:25 White Blood Count 14.1 x10^3/uL (4.0-11.0) Red Blood Count 6.07 x10^6/uL (4.30-5.70) Hemoglobin 19.3 g/dL (13.0-17.5) Hematocrit 55.9 % (39.0-53.0) Mean Corpuscular Volume 92 fL (79-100) Mean Corpuscular Hemoglobin 32 pg (25-35) Mean Corpuscular Hemoglobin Concent 35 g/dL (31-37) Red Cell Distribution Width 13.4 % (11.5-14.5) Platelet Count 213 x10^3/uL (140-400) Neutrophils (%) (Auto) 62 % (31-73) Lymphocytes (%) (Auto) 27 % (24-48) Monocytes (%) (Auto) 9 % (0-9) Eosinophils (%) (Auto) 1 % (0-3) Basophils (%) (Auto) 1 % (0-3) Neutrophils # (Auto) 8.8 x10^3/uL (1.8-7.7) Lymphocytes # (Auto) 3.8 x10^3/uL (1.0-4.8) Monocytes # (Auto) 1.3 x10^3/uL (0.0-1.1) Eosinophils # (Auto) 0.1 x10^3/uL (0.0-0.7) Basophils # (Auto) 0.1 x10^3/uL (0.0-0.2) Sodium Level 136 mmol/L (136-145) Potassium Level 4.1 mmol/L (3.5-5.1) Chloride Level 104 mmol/L (98-107) Carbon Dioxide Level 20 mmol/L (21-32) Anion Gap 12 (6-14) Blood Urea Nitrogen 13 mg/dL (8-26) Creatinine 1.0 mg/dL (0.7-1.3) Estimated GFR (Cockcroft-Gault) 76.5 BUN/Creatinine Ratio 13 (6-20) Glucose Level 128 mg/dL (70-99) Calcium Level 9.4 mg/dL (8.5-10.1) Total Bilirubin 2.0 mg/dL (0.2-1.0) Aspartate Amino Transf (AST/SGOT) 18 U/L (15-37) Alanine Aminotransferase (ALT/SGPT) 15 U/L (16-63) Alkaline Phosphatase 65 U/L (46-116) Total Protein 8.0 g/dL (6.4-8.2) Albumin 3.7 g/dL (3.4-5.0) Albumin/Globulin Ratio 0.9 (1.0-1.7) Medications Current Medications Morphine Sulfate (Morphine Sulfate) 4 mg PRN Q15MIN PRN IV/SQ PAIN GREATER THAN 3/10 Last administered on 02/15/19at 12:04; Start 02/15/19 at 11:45; Stop 02/16/19 at 11:44; Status DC Ondansetron HCl (Zofran) 4 mg 1X ONCE IV Last administered on 02/15/19at 12:05; Start 02/15/19 at 11:45; Stop 02/15/19 at 11:46; Status DC Famotidine (Pepcid Vial) 20 mg 1X ONCE IVP Last administered on 02/15/19at 12:05; Start 02/15/19 at 11:45; Stop 02/15/19 at 11:46; Status DC Dicyclomine HCl (Bentyl) 20 mg 1X ONCE PO ; Start 02/15/19 at 11:45; Stop 02/15/19 at 11:46; Status DC Iohexol (Omnipaque 300 Mg/ml) 75 ml 1X ONCE IV Last administered on 02/15/19at 13:11; Start 02/15/19 at 13:00; Stop 02/15/19 at 13:06; Status DC Info (CONTRAST GIVEN -- Rx MONITORING) 1 each PRN DAILY PRN MC SEE COMMENTS; Start 02/15/19 at 13:15; Stop 02/17/19 at 13:14 Alprazolam (Xanax) 0.5 mg 1X ONCE PO Last administered on 02/15/19at 17:51; Start 02/15/19 at 17:45; Stop 02/15/19 at 17:47; Status DC Clonidine HCl (Catapres) 0.1 mg 1X ONCE PO Last administered on 02/15/19at 17:54; Start 02/15/19 at 17:45; Stop 02/15/19 at 17:47; Status DC Aspirin (Miri Aspirin) 325 mg DAILY PO ; Start 02/16/19 at 09:00; Status Cancel Atorvastatin Calcium (Lipitor) 40 mg QHS PO Last administered on 02/16/19at 20:54; Start 02/15/19 at 21:00 Carvedilol (Coreg) 3.125 mg DAILY PO Last administered on 02/16/19at 10:28; Start 02/16/19 at 09:00; Stop 02/17/19 at 08:52; Status DC Pantoprazole Sodium (Protonix) 40 mg DAILYAC PO Last administered on 02/17/19 07:54; Start 02/16/19 at 07:30 Citalopram Hydrobromide (CeleXA) 20 mg DAILY PO Last administered on 02/17/19 09:15; Start 02/16/19 at 09:00 Lisinopril (Prinivil) 2.5 mg DAILY PO Last administered on 02/17/19 09:16; Start 02/16/19 at 09:00 Enoxaparin Sodium (Lovenox 40mg Syringe) 40 mg Q24H SQ Last administered on 02/16/19 18:09; Start 02/15/19 at 18:00 Ondansetron HCl (Zofran) 4 mg PRN Q8HRS PRN IV NAUSEA/VOMITING; Start 02/15/19 at 18:15; Stop 02/16/19 at 18:14; Status DC Morphine Sulfate (Morphine Sulfate) 4 mg PRN Q2HR PRN IV PAIN Last administered on 02/16/19 01:53; Start 02/15/19 at 18:15; Stop 02/16/19 at 18:14; Status DC Acetaminophen (Tylenol) 650 mg PRN Q4HRS PRN PO FEVER; Start 02/15/19 at 18:15; Stop 02/16/19 at 18:14; Status DC Sodium Chloride 1,000 ml @ 75 mls/hr 1X ONCE IV ; Start 02/15/19 at 18:15; Stop 02/16/19 at 07:34; Status DC Ondansetron HCl (Zofran Odt) 4 mg PRN Q6HRS PRN PO NAUSEA/VOMITING; Start 02/15/19 at 18:30 Alprazolam (Xanax) 0.5 mg PRN Q8HRS PRN PO ANXIETY / AGITATION Last administered on 02/17/19 09:16; Start 02/15/19 at 18:30 Acetaminophen/ Hydrocodone Bitart (Lortab 7.5/325) 1 tab PRN Q6HRS PRN PO PAIN; Start 02/15/19 at 18:30 Dextrose/Sodium Chloride 1,000 ml @ 75 mls/hr [id number] IV Last administered on 02/16/19at 20:54; Start 02/15/19 at 18:30 Clonidine HCl (Catapres) 0.1 mg PRN Q6HRS PRN PO HYPERTENSION; Start 02/15/19 at 18:30 Hydralazine HCl (Apresoline Inj) 10 mg PRN Q4HRS PRN IVP FOR SBP > 160; Start 02/15/19 at 18:30 Aspirin (Children'S Aspirin) 81 mg [id number] PO Last administered on 02/17/19at 09:15; Start 02/16/19 at 08:00 Influenza Virus Vaccine Quadrival (Afluria Quad 2019-20 (3yr Up) Syringe) 0.5 ml ONCE ONCE VAX IM Last administered on 02/16/19at 15:32; Start 02/16/19 at 09:00; Stop 02/16/19 at 09:01; Status DC Pantoprazole Sodium (Protonix) 40 mg DAILYAC PO ; Start 02/17/19 at 07:30; Sta tus UNV Carvedilol (Coreg) 3.125 mg BIDWMEALS PO Last administered on 02/17/19at 09:15; Start 02/17/19 at 09:00 Active Scripts Active Reported Aspirin 325 Mg Tablet 1 Tab PO DAILY Protonix (Pantoprazole Sodium) 20 Mg Tablet.dr 20 Mg PO DAILY Lisinopril 2.5 Mg Tablet 2.5 Mg PO Xanax (Alprazolam) 0.5 Mg Tablet 0.5 Mg PO BID PRN Lexapro (Escitalopram Oxalate) 10 Mg Tablet 10 Mg PO Lipitor (Atorvastatin Calcium) 40 Mg Tablet 40 Mg PO Coreg (Carvedilol) 3.125 Mg Tablet 3.125 Mg PO DAILY Vitals/I & O Vital Sign - Last 24 Hours 02/16/19 02/16/19 02/16/19 02/16/19 15:00 19:00 20:00 23:00 Temp 97.8 97.7 98.2 97.8 97.7 98.2 Pulse 41 51 52 Resp 18 18 18 B/P (MAP) 145/105 (118) 135/81 (99) 159/88 (111) Pulse Ox 96 96 96 O2 Delivery Room Air Room Air Room Air Room Air 02/17/19 02/17/19 02/17/19 02/17/19 03:08 07:00 08:00 09:15 Temp 98.1 97.5 98.1 97.5 Pulse 59 58 58 Resp 18 18 B/P (MAP) 125/81 (96) 148/83 (104) 148/83 Pulse Ox 96 95 O2 Delivery Room Air Room Air Room Air 02/17/19 09:16 Pulse 58 B/P (MAP) 148/83 Intake and Output 02/16/19 02/16/19 02/17/19 15:00 23:00 07:00 Intake Total 0 ml 0 ml 0 ml Output Total 600 ml Balance 0 ml 0 ml -600 ml AZALEA HANSON MD Feb 17, 2019 12:17
--- NOTE | 2019-02-17 12:34 | PDOC2 ---
MARCOS BRADFORD DIRECTOR OF SOCIAL WORK 02/17/19 1234: CARDIAC CONSULT DATE OF CONSULT Date of Consult DATE: 02/17/19 TIME: 12:31 REASON FOR CONSULT Reason for Consult: Dyspnea, CAD REFERRING PHYSICIAN Referring Physician: Dr. Trimble SOURCE Source: Chart review, Patient HISTORY OF PRESENT ILLNESS HISTORY OF PRESENT ILLNESS This is a 58 yo male who presented secondary to abdominal pain and nausea/vomiting. Patient reports not feeling well for the last couple of weeks. Initially started with LORD and nasal congestion. Then developed heaviness in his lungs. Reports that his lungs feel "heavy and hard". Has been slightly short of breath. On the day of arrival. Developed abdominal pain, nausea/vomiting, and dizziness/vision changes. Follows with Dr. Szymanski on an outpatient basis. Further ischemic workup with cardiac cath has been discussed, but patient has been apprehensive as he is scared of needles. Cath with anesthesia has been considered. Patient reports experiencing tightness in his central chest since CABG about [address] images revealed 7 cm enhancing left renal mass that is concerning for malignancy. Radical nephrectomy is recommended. PAST MEDICAL HISTORY Cardiovascular: CAD, HTN, CT, Hyperlipidemia Heme/Onc: Other (polycythemia ) Psych: Anxiety PAST SURGICAL HISTORY Past Surgical History: CABG FAMILY HISTORY Family History: Hypertension SOCIAL HISTORY Smoke: Quit (10 years ago ) ALCOHOL: none Drugs: None Lives: Alone CURRENT MEDICATIONS CURRENT MEDICATIONS Current Medications Medications (Trade) Dose Ordered Sig/Demian Route PRN Reason Start Time Stop Time Status Last Admin Dose Admin Carvedilol (Coreg) 3.125 mg BIDWMEALS PO 02/17/19 09:00 02/17/19 09:15 ALLERGIES ALLERGIES: Coded Allergies: Penicillins (Verified Allergy, Intermediate, Rash, 02/18/15) ROS Review of System 14 point ROS conducted with pertinent positives noted above in HPI. PHYSICAL EXAM General: Alert, Oriented X3, Cooperative, No acute distress HEENT: Atraumatic, Mucous membr. moist/pink Lungs: Clear to auscultation, Other (diminished bases) Heart: Regular rate, Normal S1, Normal S2 Abdomen: Soft Extremities: No edema, Normal pulses Skin: No significant lesion Neuro: Normal speech, Sensation intact Psych/Mental Status: Mental status NL, Mood NL MUSCULOSKELETAL: Osteoarthritic changes both hands VITALS/I&O VITALS/I&O: Vital Signs Date Time Temp Pulse Resp B/P (MAP) Pulse Ox O2 Delivery O2 Flow Rate FiO2 02/17/19 09:16 58 148/83 02/17/19 08:00 Room Air 02/17/19 07:00 97.5 18 95 97.5 I & O 02/16/19 02/16/19 02/17/19 14:59 22:59 06:59 Intake Total 0 ml 0 ml 0 ml Output Total 600 ml Balance 0 ml 0 ml -600 ml LABS Lab: Laboratory Tests Test 02/17/19 08:25 White Blood Count 14.1 x10^3/uL (4.0-11.0) H Red Blood Count 6.07 x10^6/uL (4.30-5.70) H Hemoglobin 19.3 g/dL (13.0-17.5) H Hematocrit 55.9 % (39.0-53.0) H Mean Corpuscular Volume 92 fL (79-100) Mean Corpuscular Hemoglobin 32 pg (25-35) Mean Corpuscular Hemoglobin Concent 35 g/dL (31-37) Red Cell Distribution Width 13.4 % (11.5-14.5) Platelet Count 213 x10^3/uL (140-400) Neutrophils (%) (Auto) 62 % (31-73) Lymphocytes (%) (Auto) 27 % (24-48) Monocytes (%) (Auto) 9 % (0-9) Eosinophils (%) (Auto) 1 % (0-3) Basophils (%) (Auto) 1 % (0-3) Neutrophils # (Auto) 8.8 x10^3/uL (1.8-7.7) H Lymphocytes # (Auto) 3.8 x10^3/uL (1.0-4.8) Monocytes # (Auto) 1.3 x10^3/uL (0.0-1.1) H Eosinophils # (Auto) 0.1 x10^3/uL (0.0-0.7) Basophils # (Auto) 0.1 x10^3/uL (0.0-0.2) Sodium Level 136 mmol/L (136-145) Potassium Level 4.1 mmol/L (3.5-5.1) Chloride Level 104 mmol/L (98-107) Carbon Dioxide Level 20 mmol/L (21-32) L Anion Gap 12 (6-14) Blood Urea Nitrogen 13 mg/dL (8-26) Creatinine 1.0 mg/dL (0.7-1.3) Estimated GFR (Cockcroft-Gault) 76.5 BUN/Creatinine Ratio 13 (6-20) Glucose Level 128 mg/dL (70-99) H Calcium Level 9.4 mg/dL (8.5-10.1) Total Bilirubin 2.0 mg/dL (0.2-1.0) H Aspartate Amino Transferase (AST) 18 U/L (15-37) Alanine Aminotransferase (ALT) 15 U/L (16-63) L Alkaline Phosphatase 65 U/L (46-116) Total Protein 8.0 g/dL (6.4-8.2) Albumin 3.7 g/dL (3.4-5.0) Albumin/Globulin Ratio 0.9 (1.0-1.7) L Laboratory Tests 02/17/19 08:25 Laboratory Tests 02/17/19 08:25 ECHOCARDIOGRAM ECHOCARDIOGRAM <Conclusion> The ejection fraction is severely impaired. The Ejection Fraction is 15%. The Left Ventricle is moderately dilated. There is global hypokinesis of the left ventricle. Doppler and Color-flow revealed moderate mitral regurgitation. The ascending aorta is Mildly dilated at 3.8cm. DATE: 11/02/18940 ASSESSMENT/PLAN ASSESSMENT/PLAN 1. Abdominal pain, nausea/vomiting; improved 2. Left renal mass; concerning for malignancy. Radical nephrectomy is recommended. 3. CAD s/p CABG; cardiac cath has been discussed in past, but patient has been reluctant. 4. Mild acute on chronic systolic HF 5. ICM; LVEF 15% (10/2018) 6. Hypertension; relatively controlled 7. Hyperlipidemia; statin therapy 8. Polycythemia 9. Marijuana use Recommendations Patient expressing desire to pursue cath at this time, but unfortunately we are not able to proceed given renal mass finding with recommended nephrectomy Patient would be deemed high risk for non-cardiac surgery given severe cardiomyopathy and other comorbidities Continue secondary prevention. Supportive care ABRAHAM SZYMANSKI MD 02/17/19 0260: CARDIAC CONSULT ASSESSMENT/PLAN ASSESSMENT/PLAN Pt. seen and examined. 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 He has been very reluctant to have prior ischemic evaluation. He has stable angina. He has severe LV dysfunction. I discussed with him that at this time, there is no indication to cath him given the need for mass removal. Further more, cath and possible PCI would not change his risk for surgery and may make bleeding more of an issue with PCI and need for dual antiplatelet therapy. Therefore, he would be deemed HIGH risk and accepts these risks. Nothing further from CV standpoint. We will be available for any acute issues. Thanks MARCOS BRADFORD APRN Feb 17, 2019 12:34 ABRAHAM SZYMANSKI MD Feb 17, 2019 21:35
--- NOTE | 2019-02-17 13:13 | CONS ---
DATE OF CONSULTATION: 02/17/2019 PULMONARY CONSULTATION ATTENDING PHYSICIAN: Dr. Mariposa Trimble. REASON FOR CONSULTATION: Polycythemia. HISTORY OF PRESENT ILLNESS: The patient is a 58-year-old male who has minimal tobacco history about 4-5 years. He has history of polycythemia. He says he used to follow Dr. Doyle, who is a brick grader, and was told that he had polycythemia vera. His hemoglobin was 20.4 and a hematocrit of 61. This was in November. The patient states he had phlebotomies done in the past. However, I have been asked to see him for further evaluation. He has been seen by Dr. Hall and his bone marrow aspiration biopsy was negative for myeloproliferative disorder and did not meet the criteria for polycythemia vera. He was found to have a renal mass. The patient denies any history significant for sleep apnea. He has occasional snoring, but no witnessed apneas and no daytime somnolence. He states he has been short of breath since his bypass surgery. He has ejection fraction of 15%. His chest x-ray was reported as normal; however, per my review, there is accentuation of interstitial markings with mild CHF possible. PAST MEDICAL HISTORY: Significant for history of coronary artery disease, history of CABG, myocardial infarction, severe cardiomyopathy with an EF of 15%, history of polycythemia, history of depression, anxiety, low back pain. No significant tobacco history. PAST SURGICAL HISTORY: Coronary artery bypass surgery. FAMILY HISTORY: Positive for lung cancer, prostate cancer, and colon cancer. SOCIAL HISTORY: Quit tobacco in 2007, before that smoked for about 4-5 years. REVIEW OF SYSTEMS: Twelve-point system obtained. Pertinent positives discussed in my history of present illness, otherwise noncontributory. All systems that were negative were reviewed as well. PHYSICAL EXAMINATION: VITAL SIGNS: Reviewed, pulse ox 97% on room air. NECK: Supple. LUNGS: With diminished breath sounds at the bases. CARDIOVASCULAR: With a regular rate. ABDOMEN: Soft, nontender. EXTREMITIES: Trace pitting edema. LABORATORY DATA: Reviewed. White cell count 14.1, hemoglobin 19.3, and hematocrit 55.9. BUN and creatinine of 13 and 1.0. IMPRESSION: 1. Polycythemia. The patient had a diagnosis of polycythemia vera according to the patient by Dr. Marbin Doyle, who is a brick grader. However, per Dr. Hall's note, no obvious evidence of myeloproliferative disease or polycythemia vera by blood testing. Clinically, he does not have any significant chronic obstructive pulmonary disease as he smoked less than 5 years and denies symptoms of sleep apnea. He does have a renal mass and possibility of paraneoplastic syndrome causing, polycythemia would be a consideration. 2. Minimal history of tobacco use. 3. Severe cardiomyopathy with an EF of 15% and chronic exertional dyspnea for many years, likely related to cardiomyopathy and mild congestive heart failure. 4. Left renal mass. Urology has been consulted. 5. Hypertensive crisis. RECOMMENDATIONS: 1. From a pulmonary standpoint, outpatient sleep study can be performed.( Although his ins medicaid would not cover that) 2. Discussed with Cardiology regarding further evaluation for his dyspnea on exertion in the setting of severe cardiomyopathy. He may need cardiac cath. 3. Follow hematocrit and hemoglobin levels. 4. Follow Dr. Hall's recommendation. 5. Discussed with RN. We will follow along with you. STARR CODY MD DR: JOVI/jarrett JOB#: [id number] / [id number] RACHNA
[2019-02-17] MEDS: IV DEXTROSE 5 %-0.45 % NACL 1,000 ML IV SCH (13:38)
[2019-02-17] MEDS: HYDROcodone/APAP 7.5/325MG 1 TAB TABLET PO PRN ×2 (13:39→20:07)
[2019-02-17] MEDS ORDERED: FUROSEMIDE 20 MG/2 ML VIAL. IVP ONE (16:15)
[2019-02-17] MEDS: ENOXAPARIN 40 MG/0.4 ML SYRINGE. SQ SCH (17:22)
[2019-02-17] MEDS: ATORVASTATIN CALCIUM 40 MG TABLET. PO SCH (21:15)
[2019-02-18] MEDS: IV DEXTROSE 5 %-0.45 % NACL 1,000 ML IV SCH (02:55)
[2019-02-18 03:00] VITALS: BP 111/60
[2019-02-18 05:28] LABS: BASO # 0.1 x10^3/uL (0.0-0.2); BASO % 1 % (0-3); EOS # 0.4 x10^3/uL (0.0-0.7); EOS % 3 % (0-3); HEMATOCRIT 54.7 % (39.0-53.0); HEMOGLOBIN 18.8 g/dL (13.0-17.5); LYMPH # 4.3 x10^3/uL (1.0-4.8); LYMPH % 34 % (24-48); MEAN CORPUSCULAR HEMOGLOBIN 32 pg (25-35); MEAN CORPUSCULAR HGB CONC 34 g/dL (31-37); MEAN CORPUSCULAR VOLUME 92 fL (79-100); MONO # 1.3 x10^3/uL (0.0-1.1); MONO % 10 % (0-9); NEUT # 6.5 x10^3/uL (1.8-7.7); NEUT % 51 % (31-73); PLATELET COUNT 208 x10^3/uL (140-400); RED BLOOD COUNT 5.94 x10^6/uL (4.30-5.70); RED CELL DISTRIBUTION WIDTH 13.9 % (11.5-14.5); WHITE BLOOD COUNT 12.5 x10^3/uL (4.0-11.0)
[2019-02-18 05:41] LABS: CALCIUM 8.9 mg/dL (8.5-10.1); CREATININE 1.1 mg/dL (0.7-1.3); GFR 68.5; POTASSIUM 3.7 mmol/L (3.5-5.1)
[2019-02-18] MEDS: PANTOPRAZOLE 40 MG TABLET.DR. PO SCH (06:10)
[2019-02-18 07:00] VITALS: BP 129/75
--- NOTE | 2019-02-18 07:51 | PDOC ---
PULMONARY PROGRESS NOTES Subjective sob, cough, better. Vitals Vital Signs Date Time Temp Pulse Resp B/P (MAP) Pulse Ox O2 Delivery O2 Flow Rate FiO2 02/18/19 03:00 97.8 43 18 111/60 (77) 95 Room Air 97.8 ROS: No Nausea General: Alert, Oriented X4 HEENT: Other (nc at perrl ) Lungs: Clear Cardiovascular: S1, S2 Abdomen: Soft, Non-tender Neuro Exam: Alert Skin: Warm Labs Laboratory Tests Test 02/17/19 08:25 02/18/19 04:28 White Blood Count 14.1 x10^3/uL (4.0-11.0) 12.5 x10^3/uL (4.0-11.0) Red Blood Count 6.07 x10^6/uL (4.30-5.70) 5.94 x10^6/uL (4.30-5.70) Hemoglobin 19.3 g/dL (13.0-17.5) 18.8 g/dL (13.0-17.5) Hematocrit 55.9 % (39.0-53.0) 54.7 % (39.0-53.0) Mean Corpuscular Volume 92 fL (79-100) 92 fL (79-100) Mean Corpuscular Hemoglobin 32 pg (25-35) 32 pg (25-35) Mean Corpuscular Hemoglobin Concent 35 g/dL (31-37) 34 g/dL (31-37) Red Cell Distribution Width 13.4 % (11.5-14.5) 13.9 % (11.5-14.5) Platelet Count 213 x10^3/uL (140-400) 208 x10^3/uL (140-400) Neutrophils (%) (Auto) 62 % (31-73) 51 % (31-73) Lymphocytes (%) (Auto) 27 % (24-48) 34 % (24-48) Monocytes (%) (Auto) 9 % (0-9) 10 % (0-9) Eosinophils (%) (Auto) 1 % (0-3) 3 % (0-3) Basophils (%) (Auto) 1 % (0-3) 1 % (0-3) Neutrophils # (Auto) 8.8 x10^3/uL (1.8-7.7) 6.5 x10^3/uL (1.8-7.7) Lymphocytes # (Auto) 3.8 x10^3/uL (1.0-4.8) 4.3 x10^3/uL (1.0-4.8) Monocytes # (Auto) 1.3 x10^3/uL (0.0-1.1) 1.3 x10^3/uL (0.0-1.1) Eosinophils # (Auto) 0.1 x10^3/uL (0.0-0.7) 0.4 x10^3/uL (0.0-0.7) Basophils # (Auto) 0.1 x10^3/uL (0.0-0.2) 0.1 x10^3/uL (0.0-0.2) Sodium Level 136 mmol/L (136-145) 139 mmol/L (136-145) Potassium Level 4.1 mmol/L (3.5-5.1) 3.7 mmol/L (3.5-5.1) Chloride Level 104 mmol/L (98-107) 105 mmol/L (98-107) Carbon Dioxide Level 20 mmol/L (21-32) 24 mmol/L (21-32) Anion Gap 12 (6-14) 10 (6-14) Blood Urea Nitrogen 13 mg/dL (8-26) 14 mg/dL (8-26) Creatinine 1.0 mg/dL (0.7-1.3) 1.1 mg/dL (0.7-1.3) Estimated GFR (Cockcroft-Gault) 76.5 68.5 BUN/Creatinine Ratio 13 (6-20) Glucose Level 128 mg/dL (70-99) 111 mg/dL (70-99) Calcium Level 9.4 mg/dL (8.5-10.1) 8.9 mg/dL (8.5-10.1) Total Bilirubin 2.0 mg/dL (0.2-1.0) Aspartate Amino Transf (AST/SGOT) 18 U/L (15-37) Alanine Aminotransferase (ALT/SGPT) 15 U/L (16-63) Alkaline Phosphatase 65 U/L (46-116) Total Protein 8.0 g/dL (6.4-8.2) Albumin 3.7 g/dL (3.4-5.0) Albumin/Globulin Ratio 0.9 (1.0-1.7) Laboratory Tests Test 02/17/19 08:25 02/18/19 04:28 White Blood Count 14.1 x10^3/uL (4.0-11.0) 12.5 x10^3/uL (4.0-11.0) Red Blood Count 6.07 x10^6/uL (4.30-5.70) 5.94 x10^6/uL (4.30-5.70) Hemoglobin 19.3 g/dL (13.0-17.5) 18.8 g/dL (13.0-17.5) Hematocrit 55.9 % (39.0-53.0) 54.7 % (39.0-53.0) Mean Corpuscular Volume 92 fL (79-100) 92 fL (79-100) Mean Corpuscular Hemoglobin 32 pg (25-35) 32 pg (25-35) Mean Corpuscular Hemoglobin Concent 35 g/dL (31-37) 34 g/dL (31-37) Red Cell Distribution Width 13.4 % (11.5-14.5) 13.9 % (11.5-14.5) Platelet Count 213 x10^3/uL (140-400) 208 x10^3/uL (140-400) Neutrophils (%) (Auto) 62 % (31-73) 51 % (31-73) Lymphocytes (%) (Auto) 27 % (24-48) 34 % (24-48) Monocytes (%) (Auto) 9 % (0-9) 10 % (0-9) Eosinophils (%) (Auto) 1 % (0-3) 3 % (0-3) Basophils (%) (Auto) 1 % (0-3) 1 % (0-3) Neutrophils # (Auto) 8.8 x10^3/uL (1.8-7.7) 6.5 x10^3/uL (1.8-7.7) Lymphocytes # (Auto) 3.8 x10^3/uL (1.0-4.8) 4.3 x10^3/uL (1.0-4.8) Monocytes # (Auto) 1.3 x10^3/uL (0.0-1.1) 1.3 x10^3/uL (0.0-1.1) Eosinophils # (Auto) 0.1 x10^3/uL (0.0-0.7) 0.4 x10^3/uL (0.0-0.7) Basophils # (Auto) 0.1 x10^3/uL (0.0-0.2) 0.1 x10^3/uL (0.0-0.2) Sodium Level 136 mmol/L (136-145) 139 mmol/L (136-145) Potassium Level 4.1 mmol/L (3.5-5.1) 3.7 mmol/L (3.5-5.1) Chloride Level 104 mmol/L (98-107) 105 mmol/L (98-107) Carbon Dioxide Level 20 mmol/L (21-32) 24 mmol/L (21-32) Anion Gap 12 (6-14) 10 (6-14) Blood Urea Nitrogen 13 mg/dL (8-26) 14 mg/dL (8-26) Creatinine 1.0 mg/dL (0.7-1.3) 1.1 mg/dL (0.7-1.3) Estimated GFR (Cockcroft-Gault) 76.5 68.5 BUN/Creatinine Ratio 13 (6-20) Glucose Level 128 mg/dL (70-99) 111 mg/dL (70-99) Calcium Level 9.4 mg/dL (8.5-10.1) 8.9 mg/dL (8.5-10.1) Total Bilirubin 2.0 mg/dL (0.2-1.0) Aspartate Amino Transf (AST/SGOT) 18 U/L (15-37) Alanine Aminotransferase (ALT/SGPT) 15 U/L (16-63) Alkaline Phosphatase 65 U/L (46-116) Total Protein 8.0 g/dL (6.4-8.2) Albumin 3.7 g/dL (3.4-5.0) Albumin/Globulin Ratio 0.9 (1.0-1.7) Medications Active Scripts Medications Dose Route/Sig Max Daily Dose Days Date Category Aspirin 325 Mg Tablet 1 Tab PO DAILY 04/13/16 Reported Protonix (Pantoprazole Sodium) 20 Mg Tablet. 20 Mg PO DAILY 02/18/15 Reported Lisinopril 2.5 Mg Tablet 2.5 Mg PO 02/18/15 Reported Xanax (Alprazolam) 0.5 Mg Tablet 0.5 Mg PO BID PRN 02/18/15 Reported Lexapro (Escitalopram Oxalate) 10 Mg Tablet 10 Mg PO 02/18/15 Reported Lipitor (Atorvastatin Calcium) 40 Mg Tablet 40 Mg PO 02/18/15 Reported Coreg (Carvedilol) 3.125 Mg Tablet 3.125 Mg PO DAILY 02/18/15 Reported Impression . IMPRESSION: 1. Polycythemia. The patient had a diagnosis of polycythemia vera according to the patient by Dr. Marbin Doyle, who is a medical device assembler. However, per Dr. Hall's note, no obvious evidence of myeloproliferative disease or polycythemia vera by blood testing. Clinically, he does not have any significant chronic obstructive pulmonary disease as he smoked less than 5 years and denies symptoms of sleep apnea. He does have a renal mass and possibility of paraneoplastic syndrome causing, polycythemia would be a consideration. 2. Minimal history of tobacco use. 3. Severe cardiomyopathy with an EF of 15% and chronic exertional dyspnea for many years, likely related to cardiomyopathy and mild congestive heart failure. 4. Left renal mass. Urology has been consulted. 5. Hypertensive crisis. Plan . RECOMMENDATIONS: 1. From a pulmonary standpoint, outpatient sleep study can be performed.( Although his ins medicaid would not cover that) 2. Discussed with Cardiology regarding further evaluation for his dyspnea on exertion in the setting of severe cardiomyopathy. He may need cardiac cath. 3. Follow hematocrit and hemoglobin levels. 4. Follow Dr. Hall's recommendation. 5. Discussed with pt. We will follow along with you. KATARINA BLACK MD Feb 18, 2019 07:51
[2019-02-18] MEDS: CARVEDILOL 3.125 MG TABLET. PO SCH (09:30)
[2019-02-18] MEDS: ASPIRIN CHEWABLE 81 MG TABLET. PO SCH (09:30)
[2019-02-18] MEDS: CITALOPRAM 20 MG TABLET. PO SCH (09:31)
[2019-02-18] MEDS: LISINOPRIL 5 MG TABLET. PO SCH (09:31)
[2019-02-18] MEDS: ALPRAZolam 0.5 MG TABLET PO PRN (09:32)
[2019-02-18 11:00] VITALS: BP 148/97
[2019-02-18] MEDS ORDERED: ALPR0.5T6 PO (11:15)
[2019-02-18] MEDS ORDERED: HYDR-2765 PO (11:15)
[2019-02-18] MEDS ORDERED: CARV3.12 PO (11:15)
--- NOTE | 2019-02-18 11:18 | DISCH ---
DISCHARGE INSTRUCTIONS Condition on Discharge Condition on Discharge: Stable Activity After Discharge Activity Instructions for Disc: Activity as tolerated Driving Instructions after Dis: Do not drive today Weight Bearing Status after Di: No restrictions Diet after Discharge Diet after Discharge: Cardiac Diet Texture: Regular Liquid Texture: Thin Liquid Checks after Discharge DC Comment: Check pulse ,BP before taking Carvedilol. Contacting the DRSandie after DC Call your doctor for: Concerns you may have Follow-Up Follow up with: see Dr.Pratip Daley in office on Wednesday. Follow Up With: in 6 months BETO DALEY MD Feb 18, 2019 11:18
--- NOTE | 2019-02-18 11:19 | PDOC3 ---
IM DISCHARGE SUMMARY Date of Admission Date of Admission Date of Admission: Feb 15, 2019 at 16:02 Consults Consults Karo Viramontes MD; Marck Montague MD; Mikal Whitehead MD; Clif Szymanski MD; Brenton Murphy MD; Abdias Hall MD; Cesar Watts MD Labs Labs Laboratory Tests Test 02/18/19 04:28 White Blood Count 12.5 x10^3/uL (4.0-11.0) H Red Blood Count 5.94 x10^6/uL (4.30-5.70) H Hemoglobin 18.8 g/dL (13.0-17.5) H Hematocrit 54.7 % (39.0-53.0) H Mean Corpuscular Volume 92 fL (79-100) Mean Corpuscular Hemoglobin 32 pg (25-35) Mean Corpuscular Hemoglobin Concent 34 g/dL (31-37) Red Cell Distribution Width 13.9 % (11.5-14.5) Platelet Count 208 x10^3/uL (140-400) Neutrophils (%) (Auto) 51 % (31-73) Lymphocytes (%) (Auto) 34 % (24-48) Monocytes (%) (Auto) 10 % (0-9) H Eosinophils (%) (Auto) 3 % (0-3) Basophils (%) (Auto) 1 % (0-3) Neutrophils # (Auto) 6.5 x10^3/uL (1.8-7.7) Lymphocytes # (Auto) 4.3 x10^3/uL (1.0-4.8) Monocytes # (Auto) 1.3 x10^3/uL (0.0-1.1) H Eosinophils # (Auto) 0.4 x10^3/uL (0.0-0.7) Basophils # (Auto) 0.1 x10^3/uL (0.0-0.2) Sodium Level 139 mmol/L (136-145) Potassium Level 3.7 mmol/L (3.5-5.1) Chloride Level 105 mmol/L (98-107) Carbon Dioxide Level 24 mmol/L (21-32) Anion Gap 10 (6-14) Blood Urea Nitrogen 14 mg/dL (8-26) Creatinine 1.1 mg/dL (0.7-1.3) Estimated GFR (Cockcroft-Gault) 68.5 Glucose Level 111 mg/dL (70-99) H Calcium Level 8.9 mg/dL (8.5-10.1) Laboratory Tests 02/18/19 04:28 Laboratory Tests 02/18/19 04:28 Brief hospital course Brief hospital course This year old male who presented with For more details regarding the past history, family history, social history, surgical history and other details, please refer to History and Physical. Medications Current Medications Medications (Trade) Dose Ordered Sig/Demian Route PRN Reason Start Time Stop Time Status Last Admin Dose Admin Furosemide (Lasix) 20 mg 1X ONCE IVP 02/17/19 16:15 02/17/19 16:16 DC 02/17/19 16:18 Medications reviewed and reconciled for discharge. Allergy Allergies Coded Allergies Type Severity Reaction Last Updated Verified Penicillins Allergy Intermediate Rash 02/18/15 Yes Follow up in 5 days. Comments Discharge Management - 35 minutes. For other details please refer to discharge instructions BETO DALEY MD Feb 18, 2019 11:19
--- NOTE | 2019-02-18 12:03 | PDOC3 ---
IM DISCHARGE SUMMARY Date of Admission Date of Admission Date of Admission: Feb 15, 2019 at 16:02 Date of Discharge Date of Discharge February 18, 2019 Primary Diagnosis Primary Diagnosis . Acute hypertensive crisis. 2. Abdominal pain. 3. Vomiting. 4. Left renal mass, possibly renal cell carcinoma. 5. Polycythemia vera, much worse. 6. Dyspnea. 7. Aortic aneurysm, 4.3 cm in size with thrombus. 8. Coronary artery disease. 9. History of coronary artery bypass graft. 10. Depression. 11. Anxiety. 12. Marijuana abuse. 13. Dependence on Xanax. 14. Seizure disorder. 15. History of brain injury 16. Systolic congestive heart failure with ejection fraction of 15%. Consults Consults Karo Viramontes MD; Marck Montague MD; Mikal Whitehead MD; Clif Szymanski MD; Brenton Murphy MD; Abdias Hall MD; Cesar Watts MD Labs Labs Laboratory Tests Test 02/18/19 04:28 White Blood Count 12.5 x10^3/uL (4.0-11.0) H Red Blood Count 5.94 x10^6/uL (4.30-5.70) H Hemoglobin 18.8 g/dL (13.0-17.5) H Hematocrit 54.7 % (39.0-53.0) H Mean Corpuscular Volume 92 fL (79-100) Mean Corpuscular Hemoglobin 32 pg (25-35) Mean Corpuscular Hemoglobin Concent 34 g/dL (31-37) Red Cell Distribution Width 13.9 % (11.5-14.5) Platelet Count 208 x10^3/uL (140-400) Neutrophils (%) (Auto) 51 % (31-73) Lymphocytes (%) (Auto) 34 % (24-48) Monocytes (%) (Auto) 10 % (0-9) H Eosinophils (%) (Auto) 3 % (0-3) Basophils (%) (Auto) 1 % (0-3) Neutrophils # (Auto) 6.5 x10^3/uL (1.8-7.7) Lymphocytes # (Auto) 4.3 x10^3/uL (1.0-4.8) Monocytes # (Auto) 1.3 x10^3/uL (0.0-1.1) H Eosinophils # (Auto) 0.4 x10^3/uL (0.0-0.7) Basophils # (Auto) 0.1 x10^3/uL (0.0-0.2) Sodium Level 139 mmol/L (136-145) Potassium Level 3.7 mmol/L (3.5-5.1) Chloride Level 105 mmol/L (98-107) Carbon Dioxide Level 24 mmol/L (21-32) Anion Gap 10 (6-14) Blood Urea Nitrogen 14 mg/dL (8-26) Creatinine 1.1 mg/dL (0.7-1.3) Estimated GFR (Cockcroft-Gault) 68.5 Glucose Level 111 mg/dL (70-99) H Calcium Level 8.9 mg/dL (8.5-10.1) Laboratory Tests 02/18/19 04:28 Laboratory Tests 02/18/19 04:28 Brief hospital course Brief hospital course This 58-year-old male states that for the last 2 weeks he has not been feeling well. He started having back pain that has been getting worse. He has a history of chronic low back pain. Then for the last 3 days, he has had nausea and vomiting. Denies abdominal pain. He had no bowel movement. He states that he could not eat and he has not taken his medications. He also started becoming dyspneic this morning. He also has had cough, congestion, sneezing, and nasal drainage. Mucus is white. He denies any fever or chills. Because of the severe back pain, abdominal pain, nausea, vomiting, and dyspnea, he came to the Emergency Room. In the Emergency Room, he has had very high blood pressures. Initial blood pressure was 197/95 and 196/124 and now it is 176/98. He was given clonidine in the Emergency Room. Blood test showed that he is known to have polycythemia vera and has previously sometimes given blood for therapeutic phlebotomy. His WBC count is 16.4, hemoglobin is 20.9, polys 73, and platelet count is 261,000. Sodium 140, potassium 4.6, BUN 16, creatinine 1.1, glucose 130, calcium 10.9, magnesium 1.9, and total bilirubin 1.3. BNP was 457. Troponin was normal. Urine drug screen showed marijuana and benzodiazepines in his urine. The patient has a history of anxiety and has previously been on Xanax, but we had declined to give him Xanax for some time. His urinalysis showed small bilirubin, nitrite negative, 3-5 rbc's, 1-4 wbc's, and few bacteria. CT scan of abdomen and pelvis showed left renal mass which could be possible renal cell carcinoma. He also has a 4.3 cm infrarenal abdominal aortic aneurysm with thrombus. He has had bilateral L5 pars interarticularis fractures that are chronic. Because of the hypertensive crisis, abdominal pain, vomiting, worsening of the polycythemia vera, and dyspnea, the patient was admitted for further evaluation and management. For more details regarding the past history, family history, social history, surgical history and other details, please refer to History and Physical. We will consult Dr. Hall for evaluation of his polycythemia. He may be also dehydrated. I will give him some IV fluids. He was supposed to get a sleep study ordered by Dr. Hall. Leukocytosis may be due to polycythemia, but because of his dyspnea, cough, and sinus congestion, I will also consult Dr. Marck Montague for Infectious Disease evaluation and management. He also has had significant nausea, vomiting, and abdominal pain. Consult Dr. Viramontes for Urology evaluation and management and Dr. Whitehead for Vascular Surgery evaluation and management because of the thrombus in the aneurysm. We will give him IV fluids. I will order x-rays of the chest and lumbar spine. I will start him on Lovenox 40 mg subcutaneous daily. Continue other medications. I will put him back on aspirin. I will hold Plavix for now in case if any procedure is planned. For details, please refer to the orders. I will also give him clonidine 0.1 mg q. 6 hours p.r.n. for systolic blood pressure more than 160. For details, please refer to the orders. Polycythemia,Leukocytosis - improving.Polycythemia is not primary. ? Secondary cause- DEUCE/Renal etc. Polycythemia. He does not meet the criteria for polycythemia vera. JAK2 mutation, erythropoietin level and bone marrow biopsy were all unremarkable. I would continue supportive care. Hemoglobin was 20.9 on 02/15/2019 and it has improved to 18.8 on 02/16/2019. CT scan of the abdomen on 02/15/2019 revealed a 7.3 cm mass in the left kidney. Polycythemia is one of the paraneoplastic syndromes associated with renal cell carcinoma, which has been associated with erythropoietin production from renal carcinoma cells. erythropoietin level is 8.9 Consult . D/w . Leukocytosis is surely reactive. The visit count and hemoglobin are improving. He does not need any antibiotics. Hypertensive crisis improving. His blood pressure is much better now. His heart rate was low this morning and Coreg was held. Advised him to check his pulse before taking Coreg every day and if the heart rate is more than 55 he should take his Coreg. Continue Coreg 3.125 mg twice daily. Chest x ray no acute changes. Anxiety/Panic attacks- continue Xanax .Not taking Lexapro.Advised to take regularly. We'll discharge him on Xanax and Lexapro. ? Renal cell carcinoma.Urologist recommends radical nephrectomy at . Continue hydrocodone for control of the pain. Aortic aneurysm- 4.3 cm with clot.Repeat CT in 6 mths per . CAD- cardiology consult was obtained. Patient's echocardiogram shows ejection fraction of 15%. The strategies analyst has recommended medical management and at this time cardiac catheterization would not help. This Was discussed with the patient and he is agreeable with this plan. D/w patient and sister about his condition, treatment and options. He has been advised to see the urologist at [facility] for possible radical nephrectomy. He will also be able to see the congestive heart failure clinic strategies analyst at . Asked him to see me in the office in 3 days on Wednesday and then we will make arrangements for him to see the physicians. Medications Current Medications Medications (Trade) Dose Ordered Sig/Demian Route PRN Reason Start Time Stop Time Status Last Admin Dose Admin Furosemide (Lasix) 20 mg 1X ONCE IVP 02/17/19 16:15 02/17/19 16:16 DC 02/17/19 16:18 Medications reviewed and reconciled for discharge. Allergy Allergies Coded Allergies Type Severity Reaction Last Updated Verified Penicillins Allergy Intermediate Rash 02/18/15 Yes Follow up in 3 days. DISPOSITION: Home Comments Discharge Management - 35 minutes. For other details please refer to discharge instructions BETO DALEY MD Feb 18, 2019 12:03
--- NOTE | 2019-02-18 12:48 | NUR ---
Discharge teaching provided written and verbal to pt,understanding verbalized. Dismissecd to home with all belongings accompanied by his grandson. Transported to exit per w/c at 1240.
== END 2019-02-18 12:40 | disposition home or self-care (01) | DRG 947 ==
LOC: ER 10:53 → ED HOLD 16:02 → 5 SOUTH 18:48
PROVIDERS: ADMIT Internal Medicine; ATTEND Internal Medicine
DX: G89.3 Neoplasm related pain (acute) (chronic) (principal); I50.23 Acute on chronic systolic (congestive) heart failure; I16.9 Hypertensive crisis, unspecified; C64.9 Malignant neoplasm of unspecified kidney, except renal pelvis; F13.20 Sedative, hypnotic or anxiolytic dependence, uncomplicated; I42.9 Cardiomyopathy, unspecified; N39.0 Urinary tract infection, site not specified; K21.9 Gastro-esophageal reflux disease without esophagitis; I71.4 Abdominal aortic aneurysm, without rupture; I25.10 Atherosclerotic heart disease of native coronary artery without angina pectoris; E78.00 Pure hypercholesterolemia, unspecified; E78.5 Hyperlipidemia, unspecified; F12.10 Cannabis abuse, uncomplicated; F32.9 Major depressive disorder, single episode, unspecified; F41.0 Panic disorder [episodic paroxysmal anxiety]; G40.909 Epilepsy, unspecified, not intractable, without status epilepticus; G89.29 Other chronic pain; I11.0 Hypertensive heart disease with heart failure; I25.118 Atherosclerotic heart disease of native coronary artery with other forms of angina pectoris; I25.2 Old myocardial infarction; R13.10 Dysphagia, unspecified; Z79.899 Other long term (current) drug therapy; Z80.0 Family history of malignant neoplasm of digestive organs; Z80.1 Family history of malignant neoplasm of trachea, bronchus and lung; Z80.51 Family history of malignant neoplasm of kidney; Z82.49 Family history of ischemic heart disease and other diseases of the circulatory system; Z85.528 Personal history of other malignant neoplasm of kidney; Z80.42 Family history of malignant neoplasm of prostate; Z87.891 Personal history of nicotine dependence; Z95.1 Presence of aortocoronary bypass graft; D45 Polycythemia vera
CPT/HCPCS: 36415; 71046; 72100; 74177; 80048; 80053; 80307; 81001; 82553; 82668; 83690; 83735; 83880; 84484; 85025; 90471; 90686; 93005; 96374; 96375; G0480; J1650; J1940; J2270; J2405; J3490; Q9967; 99285-25; G0378

== ENCOUNTER → 2020-03-29 | Outpatient (CLI) | payer OTHER ==
[~2020-03-29] MED LIST changes: +ALPR0.5T6 PO; +HYDR-2765 PO
[2020-03-29 09:22] LABS: BASO # 0.1 x10^3/uL (0.0-0.2); BASO % 1 % (0-3); EOS # 0.2 x10^3/uL (0.0-0.7); EOS % 2 % (0-3); HEMATOCRIT 51.9 % (39.0-53.0); HEMOGLOBIN 17.5 g/dL (13.0-17.5); LYMPH # 3.2 x10^3/uL (1.0-4.8); LYMPH % 28 % (24-48); MEAN CORPUSCULAR HEMOGLOBIN 31 pg (25-35); MEAN CORPUSCULAR HGB CONC 34 g/dL (31-37); MEAN CORPUSCULAR VOLUME 93 fL (79-100); MONO % 9 % (0-9); NEUT # 6.9 x10^3/uL (1.8-7.7); NEUT % 60 % (31-73); PLATELET COUNT 201 x10^3/uL (140-400); RED BLOOD COUNT 5.61 x10^6/uL (4.30-5.70); RED CELL DISTRIBUTION WIDTH 13.5 % (11.5-14.5); WHITE BLOOD COUNT 11.4 x10^3/uL (4.0-11.0)
== END ==
LOC: ONCLAB 08:45
PROVIDERS: ATTEND Internal Medicine Hematology & Oncology
DX: C64.2 Malignant neoplasm of left kidney, except renal pelvis (principal); D45 Polycythemia vera
CPT/HCPCS: 82607; 82668; 82728; 82746; 83540; 83550; 85025

== ENCOUNTER → 2020-06-25 | Outpatient (CLI) | payer OTHER ==
[2020-06-25 13:55] LABS: BASO # 0.1 x10^3/uL (0.0-0.2); BASO % 1 % (0-3); EOS # 0.2 x10^3/uL (0.0-0.7); EOS % 2 % (0-3); HEMATOCRIT 51.3 % (39.0-53.0); HEMOGLOBIN 17.4 g/dL (13.0-17.5); LYMPH # 4.2 x10^3/uL (1.0-4.8); LYMPH % 29 % (24-48); MEAN CORPUSCULAR HEMOGLOBIN 31 pg (25-35); MEAN CORPUSCULAR HGB CONC 34 g/dL (31-37); MEAN CORPUSCULAR VOLUME 92 fL (79-100); MONO # 1.1 x10^3/uL (0.0-1.1); MONO % 7 % (0-9); NEUT # 9.1 x10^3/uL (1.8-7.7); NEUT % 62 % (31-73); PLATELET COUNT 239 x10^3/uL (140-400); RED BLOOD COUNT 5.59 x10^6/uL (4.30-5.70); RED CELL DISTRIBUTION WIDTH 13.1 % (11.5-14.5); WHITE BLOOD COUNT 14.8 x10^3/uL (4.0-11.0)
== END ==
LOC: ONCLAB 13:22
PROVIDERS: ATTEND Internal Medicine Hematology & Oncology
DX: D45 Polycythemia vera (principal)
CPT/HCPCS: 36415; 85025

== ENCOUNTER → 2020-08-28 | Outpatient (CLI) | payer OTHER ==
[2020-08-28 10:23] LABS: BASO # 0.1 x10^3/uL (0.0-0.2); BASO % 1 % (0-3); EOS # 0.3 x10^3/uL (0.0-0.7); EOS % 3 % (0-3); HEMATOCRIT 48.3 % (39.0-53.0); HEMOGLOBIN 16.5 g/dL (13.0-17.5); LYMPH # 3.6 x10^3/uL (1.0-4.8); LYMPH % 29 % (24-48); MEAN CORPUSCULAR HEMOGLOBIN 31 pg (25-35); MEAN CORPUSCULAR HGB CONC 34 g/dL (31-37); MEAN CORPUSCULAR VOLUME 91 fL (79-100); MONO # 1.1 x10^3/uL (0.0-1.1); MONO % 9 % (0-9); NEUT # 7.4 x10^3/uL (1.8-7.7); NEUT % 59 % (31-73); PLATELET COUNT 208 x10^3/uL (140-400); RED BLOOD COUNT 5.33 x10^6/uL (4.30-5.70); WHITE BLOOD COUNT 12.5 x10^3/uL (4.0-11.0)
[2020-08-28 10:29] LABS: CALCIUM 8.9 mg/dL (8.5-10.1); CREATININE 1.1 mg/dL (0.7-1.3); GFR 68.1; POTASSIUM 4.2 mmol/L (3.5-5.1)
[2020-08-28 10:36] LABS: ALBUMIN 3.7 g/dL (3.4-5.0); TOTAL PROTEIN 7.5 g/dL (6.4-8.2)
[2020-08-28 11:32] LABS: BILIRUBIN,URINE NEGATIVE (NEG); CLARITY,URINE CLEAR; COLOR,URINE YELLOW; NITRITE,URINE NEGATIVE (NEG); PROTEIN,URINE NEGATIVE (NEG-TRACE)
[2020-08-28 11:54] LABS: BACTERIA,URINE 0 /HPF (0-FEW); RBC,URINE OCC /HPF (0-2); WBC,URINE 0 /HPF (0-4)
== END ==
LOC: ONCLAB 09:30
PROVIDERS: ATTEND Internal Medicine Hematology & Oncology
DX: C64.2 Malignant neoplasm of left kidney, except renal pelvis (principal); D75.1 Secondary polycythemia
CPT/HCPCS: 36415; 80053; 81001; 83615; 85025

== ENCOUNTER → 2020-11-21 | Outpatient (CLI) | payer OTHER ==
--- NOTE | 2020-11-21 09:45 | RAD ---
PQRS Compliance Statement: One or more of the following individualized dose reduction techniques were utilized for this examinat ion: 1. Automated exposure control 2. Adjustment of the mA and/or kV according to patient size 3. Use of iterative reconstruction technique CT CHEST_ABDOMEN_ AND PELVIS WITHOUT CONTRAST 11/21/2020 8:51 AM Indication: Restaging renal cell carcinoma COMPARISON: CT abdomen/pelvis 02/15/2019 TECHNIQUE: Multiple axial CT images of the chest, abdomen and pelvis were obtained without intravenou s contrast. Coronal and sagittal reformats are provided. FINDINGS: 5 mm x 2 mm oval solid noncalcified pulmonary nodule in the right lower lobe (series 2, image 45) is stable from 02/15/2019 and presumed benign. Calcified granuloma identified at the left lung base measu ring 4 mm. Wall thickening compatible with nonspecific bronchitis. No pleural effusions, pulmonary vascular sharee estion or pneumothorax. Thyroid gland is normal in appearance. Surgical clips are identified along th e anterior superior mediastinum. Median sternotomy changes are present. Three-vessel coronary artery vascular calcifications are present. Heart size is within normal limits. There is no pericardial effu jeanine. Within the limitations of a noncontrast examination, there are no pathologically enlarged thora cic lymph nodes. Evaluation of the solid abdominal viscera is limited by lack of intravenous contrast. Liver, spleen, adrenal glands, pancreas and gallbladder are normal in appearance. Small duodenal diverticulum measur es 1.6 x 0.9 cm. Infrarenal abdominal aortic aneurysm measures 4.7 x 4.6 cm, previously 4.3 x 4.1 cm midline 10/10/2018 . Dense calcified atheromatous plaque is present. No pathologically enlarged lymph nodes are identifi ed in abdomen and pelvis. There is a stable lymph node adjacent to the origin of the celiac axis natali uring 0.9 cm (series 4, image 23). Left nephrectomy changes are present. Right kidney is normal in appearance. 2 mm nonobstructing calcu hardik identified in the interpolar right kidney. No hydronephrosis. Ureters normal in appearance. Urina ry bladder is normal given degree of distention. Small fat-containing bilateral inguinal hernias. Pro state and seminal vesicles are normal in appearance. Small and large bowel are normal in caliber. The re is no evidence for bowel obstruction. There are no pericolonic inflammatory changes. A normal, non dilated appendix is visualized without adjacent inflammatory changes. No suspicious osseous abnormali ty. IMPRESSION: 1. Left nephrectomy changes are identified without evidence for local recurrent or residual tumor. 2. 0.9 cm lymph node adjacent to the origin of the celiac axis is stable, likely reactive. 3. No evidence for metastatic disease involving the chest. 4. Infrarenal abdominal aortic aneurysm measuring 4.7 x 4.6 cm, previously 4.3 x 4.1 cm. Electronically signed by: Betty Degroot MD (11/21/2020 9:42 AM) [facility]
== END ==
LOC: CT 08:48
PROVIDERS: ATTEND Physician Assistant
DX: R91.1 Solitary pulmonary nodule (principal); I71.4 Abdominal aortic aneurysm, without rupture; D75.1 Secondary polycythemia; I25.10 Atherosclerotic heart disease of native coronary artery without angina pectoris; K57.10 Diverticulosis of small intestine without perforation or abscess without bleeding; N20.0 Calculus of kidney; N32.89 Other specified disorders of bladder; K40.20 Bilateral inguinal hernia, without obstruction or gangrene, not specified as recurrent; Z90.5 Acquired absence of kidney
CPT/HCPCS: 71250; 74176

== ENCOUNTER → 2020-12-06 | Outpatient (CLI) | payer OTHER ==
[2020-12-06 12:01] LABS: BASO # 0.1 x10^3/uL (0.0-0.2); BASO % 1 % (0-3); EOS # 0.3 x10^3/uL (0.0-0.7); EOS % 3 % (0-3); HEMATOCRIT 51.3 % (39.0-53.0); HEMOGLOBIN 17.2 g/dL (13.0-17.5); LYMPH # 3.6 x10^3/uL (1.0-4.8); LYMPH % 30 % (24-48); MEAN CORPUSCULAR HEMOGLOBIN 31 pg (25-35); MEAN CORPUSCULAR HGB CONC 34 g/dL (31-37); MEAN CORPUSCULAR VOLUME 93 fL (79-100); MONO % 9 % (0-9); NEUT % 58 % (31-73); PLATELET COUNT 237 x10^3/uL (140-400); RED CELL DISTRIBUTION WIDTH 13.2 % (11.5-14.5); WHITE BLOOD COUNT 12.1 x10^3/uL (4.0-11.0)
== END ==
LOC: ONCLAB 11:33
PROVIDERS: ATTEND Internal Medicine Hematology & Oncology
DX: D75.1 Secondary polycythemia (principal)
CPT/HCPCS: 36415; 85025

== ENCOUNTER → 2021-06-13 | Outpatient (CLI) | payer OTHER ==
[~2021-06-13] MED LIST changes: -LISI2.5T PO; +LISI2.5T12 PO
[2021-06-13 09:28] LABS: BASO # 0.1 x10^3/uL (0.0-0.2); BASO % 1 % (0-3); EOS # 0.3 x10^3/uL (0.0-0.7); EOS % 3 % (0-3); HEMATOCRIT 52.7 % (39.0-53.0); LYMPH # 3.3 x10^3/uL (1.0-4.8); LYMPH % 30 % (24-48); MEAN CORPUSCULAR HEMOGLOBIN 31 pg (25-35); MEAN CORPUSCULAR HGB CONC 34 g/dL (31-37); MEAN CORPUSCULAR VOLUME 92 fL (79-100); MONO % 9 % (0-9); NEUT # 6.4 x10^3/uL (1.8-7.7); NEUT % 58 % (31-73); PLATELET COUNT 232 x10^3/uL (140-400); RED BLOOD COUNT 5.76 x10^6/uL (4.30-5.70); RED CELL DISTRIBUTION WIDTH 13.2 % (11.5-14.5)
[2021-06-13 09:38] LABS: CALCIUM 8.9 mg/dL (8.5-10.1); CREATININE 1.2 mg/dL (0.7-1.3); GFR 61.3; POTASSIUM 4.8 mmol/L (3.5-5.1)
[2021-06-13 09:42] LABS: ALBUMIN 3.7 g/dL (3.4-5.0); ALBUMIN/GLOBULIN RATIO 0.9 (1.0-1.7); TOTAL BILIRUBIN 0.9 mg/dL (0.2-1.0); TOTAL PROTEIN 7.6 g/dL (6.4-8.2)
== END ==
LOC: ONCLAB 08:55
PROVIDERS: ATTEND Internal Medicine Hematology & Oncology
DX: D75.1 Secondary polycythemia (principal)
CPT/HCPCS: 36415; 80053; 83615; 85025